=== PATIENT | male | born 1945 | race Caucasian/White ===

== ENCOUNTER 2017-01-03 15:26 | Observation (INO) ==
[2017-01-03] MEDS ORDERED: FUROSEMIDE 100 MG/10 ML VIAL IV STA (15:46)
[2017-01-03] MEDS ORDERED: ASPIRIN 325 MG TABLET PO STA (15:46)
[2017-01-03] MEDS ORDERED: NITROGLYCERIN 2% OINT 1 INCH/GM PACK TOP STA (15:46)
[2017-01-03] MEDS ORDERED: ONDANSETRON 4 MG/2 ML VIAL IV PRN ×2 (15:46→18:30)
--- NOTE | 2017-01-03 15:50 | EKG Report ---
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
--- NOTE | 2017-01-03 16:06 | Emergency Department Note ---
Letty Chanel Mantricia, am scribing for, and in the presence of, Diallo Baker MD 16:01. Olivia Chanel James D, MD, personally performed the services described in this documentation, ascribed by Montserrat Saenz in my presence, and it is both accurate and complete [id number] . Arrival - Arrival Chief Complaint: Shortness of Breath Stated Complaint: Shortness of Breath ED Nursing Triage Note: reports sob that started three days ago that is worse on exertion. reports has recently started on a low carb diet through wt mgmnt and it started after that reports also gets a pain in his left shoulder blade when he has the sob. Mode of Arrival: Wheelchair Limitations: No Limitations Source: Patient, Old Records Reviewed, RN Notes Reviewed Time Seen by Provider: 01/03/17 15:41 - History of Present Illness HPI Narrative: Pt is a 71 y/o white male arriving to ED via wheelchair with c/o SOB that onset 3 days ago. He reports that he noticed the SOB when his voice teacher, Dr. Mchugh , placed him on weight management. Once seeking help with weight management, pt was placed on a low carb diet, for which he has been on for 3 weeks now. Pt states that his SOB worsens with his other sxs, left shoulder blade. He denies becoming diaphoretic when he is short of breath. Pt reports decreased chronic lowered extremity movement due to his PMHx of spinal stenosis and cellulitis. Pt also has a PMHx of DM, CHF, Afib, and AAA. He is currently taking 0.125mg Digoxin, 81mg ASA, Diltiazam, Gabapentin, and 25mg Losartan, amongst many more. Pt's PCP is Dr. Auguste. No other complaints were reported to ED. Onset (ago): day(s) Consistency: constant Severity: moderate Allergies/Adverse Reactions: Allergies Allergy/AdvReac Type Severity Reaction Status Date / Time No Known Allergies Allergy Verified 07/03/16 11:23 Home Medications: Home Medications Medication Instructions Recorded Confirmed Type Allopurinol 100 mg PO BID 07/03/16 01/03/17 History Aspirin [Ecotrin] 81 mg PO QAM 07/03/16 01/03/17 History Carvedilol [Coreg] 3.125 mg PO BID 07/03/16 01/03/17 History Digoxin 0.125 mg PO QAM 07/03/16 01/03/17 History Diltiazem Cd Cap [Cardizem CD] 240 mg PO BID 07/03/16 01/03/17 History Furosemide Tab [Lasix Tab] 40 mg PO QAM 07/03/16 01/03/17 History Gabapentin Cap/Tab [Neurontin 600 mg PO TID 07/03/16 01/03/17 History Cap/Tab] Glimepiride [Amaryl] 4 mg PO DAILY W/BREAKFAST 07/03/16 01/03/17 History Losartan [Cozaar] 25 mg PO QAM 07/03/16 01/03/17 History Lovastatin 20 mg PO BEDTIME 07/03/16 01/03/17 History Magnesium 250 mg PO BID 07/03/16 01/03/17 History Tamsulosin [Flomax] 0.4 mg PO BID 07/03/16 01/03/17 History Potassium Chloride Cap/Tab [K Dur] 40 meq PO BID 01/03/17 01/03/17 History Review of System - Review of System 12 point system: reviewed and no additional remarkable complaints except as stated - Review of System Constitutional: Absent: chills, diaphoresis, fever Respiratory: Present: other (SOB). Absent: cough Cardiovascular: Absent: chest pain Gastrointestinal: Absent: abdominal pain, nausea, vomiting, diarrhea Musculoskeletal: Present: other (left shoulder blade pain). Absent: arm pain, back pain, leg pain, neck pain Medical,Surgical,& Family Hx - Medical History Cardio: History of: Cardiac Dysrhythmia (AFIB, DR MCHUGH 6 WEEKS AGO FOR AAA IN FUTURE), Hypertension (MEDICATION), Cardiovascular Problems (AAA followed by Dr. Goldstein) Neurology: History of: Peripheral Neuropathy (MEDICATION) No history of: Seizures Genitourinary: History of: Kidney Stones Gastrointestinal: Comment Only: GI Problems (FISTULA SURG OVER 40 YRS AGO) Musculoskeletal: History of: Back/Neck Problems (Spinal stenosis diagnosed today ), Herniated Disk, Musculoskeletal Problems (RIGHT LEG CYST REMOVED 10 YEARS AGO ) Other: No history of: Anesthesia Reactions - Surgical History Cardiac Surgeries: Sugical HX of: Cardiac Catheterization (No coronary artery disease, nonischemic cardiomyopathy) Abdominal Surgeries: Surgical HX of: Hernia Repair (15 YEARS AGO) - Social History Smoking Status: Never smoker Exam Vital Signs: Vital Signs Temperature 98.1 F 01/03/17 15:28 Pulse Rate 91 H 01/03/17 15:47 Respiratory Rate 22 01/03/17 15:47 Blood Pressure 136/73 01/03/17 15:28 O2 Sat by Pulse Oximetry 94 L 01/03/17 15:28 GENERAL: This is a well-nourished well-developed chronically ill-appearing white male in no apparent distress. VITAL SIGNS: Reviewed HEENT: Head is atraumatic and normocephalic. Pupils are equal round react to light. Extraocular movements are intact. Oropharynx is benign with moist mucous membranes. NECK: Neck is soft and supple without tenderness. There are no masses. There is no lymphadenopathy. LUNGS: Coarse breath sounds in the bases bilaterally. Chest rises symmetrically. There is no chest wall tenderness. CV: Heart is irregularly irregular without murmurs rubs or gallops. ABDOMEN: Abdomen is soft, nontender to palpation. There are no abdominal abnormal masses palpated. There is no organomegaly. Bowel sounds are present and active. SKIN: Skin is warm and dry. No rash. EXTREMITIES: Patient has full range of motion without tenderness. There is trace pedal edema. NEUROLOGIC: Awake alert and oriented 4. Cranial nerves II through XII are grossly intact. Motor is 4 over 5 in all extremities bilaterally. Course - Consultations Consultation #1: Discussed with Dr. José. Patient will be admitted to their service. Initial orders written for him. He will assume patient's care upon arrival to the [facility]. Time: 17:11 Results - Labs CBC & BMP: 01/03/17 15:59 01/03/17 15:59 Lab Results: I have reviewed the patients labs Labs: Laboratory Tests 01/03/17 15:59 Troponin I 0.446 H - EKG EKG results: interpreted by ERMD - Impressions EKG: Atrial fib with a rate of 92, nonspecific ST-T wave changes, right axis deviation - Diagnostic Findings Procedure: Chest x-ray: image reviewed by me (Increased pulmonary markings bilaterally.) Disposition Clinical Impression: Atrial fibrillation, Dyspnea, Congestive heart failure, Diabetes mellitus, Spinal stenosis, Elevated troponin Case discussed with: patient, patient's family
[2017-01-03 16:12] LABS: Basophils % 0.5 % (0.0-0.8); Eosinophils # 0.2 10*3/uL (0.0-0.87); Hematocrit 44.6 VOL% (42.0-52.0); Hemoglobin 14.5 GM/DL (14.0-18.0); Immature Granulocytes % 0.4 %; Immature Granulocytes Absolute 0.03 #; Mean Corpuscular HGB Conc 32.5 GM/DL (32-36); Mean Corpuscular Hemoglobin 29 PG (27-34); Mean Corpuscular Volume 89.4 FL (87-102); Mean Platelet Volume 10.7 FL (9.6-12.0); Monocytes # 0.5 10*3/uL (0.11-0.8); Monocytes % 6.4 % (1.7-12.7); Neutrophils % 77.7 % (38.7-73.9); Platelet Count 187 T/CUMM (130-400); Red Blood Count 4.99 MC/CUMM (3.8-5.5); Red Cell Distribution Width 14.7 % (9.3-17.3); White Blood Count 7.7 T/CUMM (4-12)
[2017-01-03] MEDS ORDERED: NITROGLYCERIN 2% OINT 1 INCH/GM PACK TOP ONE (16:12)
[2017-01-03] MEDS ORDERED: FUROSEMIDE 100 MG/10 ML VIAL ONE (16:13)
[2017-01-03] MEDS ORDERED: ASPIRIN 325 MG TABLET ONE (16:13)
--- NOTE | 2017-01-03 16:16 | XRay Report ---
Single view the chest. Indication: Shortness of breath. Comparison: March 02, 2013. The heart is enlarged. The pulmonary vasculature is prominent. The interstitial lung markings are prominent. There are bilateral pleural effusions. Impression: Congestive heart failure. PROCEDURE INTERPRETED AT [facility] DEPARTMENT OF RADIOLOGY Final Report Signed by: Dr. Maggie Neumann
[2017-01-03 16:20] LABS: INR 1.3; PT Patient Result 14.4 SECS; Partial Thromboplastin Time 38.7 SECS (0-40)
[2017-01-03 16:48] LABS: Albumin 2.8 G/DL (3.4-5.0); Bilirubin,Total 0.9 MG/DL (0.2-1.0); Magnesium 2.1 MG/DL (1.8-2.4); Osmolality,Calculated 284.5 MOS/KG (273-304); Potassium 4.1 MMOL/L (3.5-5.1); Total Protein 6.2 G/DL (6.4-8.3)
[2017-01-03 16:49] LABS: Troponin I Only 0.446 NG/ML (0.00-0.045)
[2017-01-03] MEDS ORDERED: ENOXAPARIN 120 MG/0.8 ML SYRINGE SUBCUT STA (17:09)
[2017-01-03] MEDS ORDERED: ENOXAPARIN 120 MG/0.8 ML SYRINGE SUBCUT ONE (17:23)
[2017-01-03] MEDS ORDERED: GLUCAGON 1 MG VIAL IM PRN (18:30)
[2017-01-03] MEDS ORDERED: DEXTROSE 50% 25 GM/50 ML SYRINGE IV PRN (18:30)
[2017-01-03] MEDS ORDERED: MAGNESIUM SULF RIDER 4 GM in PREMIX 1 EACH IV PRN (18:30)
[2017-01-03] MEDS ORDERED: MAGNESIUM SULF RIDER 2 GM in PREMIX 1 EACH IV PRN (18:30)
[2017-01-03] MEDS ORDERED: SODIUM CHLORIDE 0.9% 1,000 ML IV SCH (18:30)
[2017-01-03] MEDS ORDERED: ENOXAPARIN 40 MG/0.4 ML SYRINGE SUBCUT SCH (21:00)
[2017-01-03] MEDS: INSULIN LISPRO 100 UNIT/ML SUBCUT SCH (22:17)
[2017-01-03] MEDS: CARVEDILOL 3.125 MG TABLET PO SCH (22:18)
[2017-01-03] MEDS: DILTIAZEM CD 240 MG CAPSULE PO SCH (22:18)
[2017-01-03] MEDS: TAMSULOSIN 0.4 MG CAPSULE PO SCH (22:18)
[2017-01-03] MEDS: POTASSIUM CHLORIDE 20 MEQ TABLET PO SCH (22:19)
[2017-01-04] MEDS: MAGNESIUM OXIDE 400 MG TABLET PO SCH ×3 (06:07→21:56)
--- NOTE | 2017-01-04 07:21 | Cardiology History & Physical ---
Assessment and Plan - Time spent with patient Time spent with patient: Greater than 30 minutes (Exam, interview, chart review) (1) Atrial fibrillation, permanent Status: Chronic Assessment and plan: Continue anticoagulation and rate control Current Visit: No (2) Obesity Status: Chronic Current Visit: No Qualifiers: Body mass index: BMI 45.0-49.9 (3) Spinal stenosis Status: Chronic Current Visit: No Qualifiers: Spinal region: lumbar Qualified Code(s): M48.06 - Spinal stenosis, lumbar region (4) Nephrolithiasis Status: Chronic Current Visit: No (5) Gait abnormality Status: Chronic Current Visit: No (6) Obstructive sleep apnea Status: Chronic Current Visit: No (7) Atrial fibrillation Status: Chronic Current Visit: Yes (8) Dyspnea Status: Acute Assessment and plan: This appears to be acute on chronic. Current Visit: Yes Qualifiers: Dyspnea type: dyspnea on exertion Qualified Code(s): R06.09 - Other forms of dyspnea (9) Diabetes mellitus Status: Acute Current Visit: Yes Qualifiers: Diabetes mellitus type: type 2 (10) Elevated troponin Status: Chronic Assessment and plan: There is no dynamic movement in his troponin levels this is likely multifactorial will get an echo. I felt the patient had been cathed before but I cannot find that report he may need left heart cath. Current Visit: Yes (11) Tremor Status: Chronic Assessment and plan: This appears to be worse. Consider getting neurology to see Current Visit: Yes History of Present Illness Chief complaint: Shortness of breath History of present illness: Mr. Javier is a 71 year old male followed by me in the outpatient setting. He has a history of morbid exogenous obesity. He also has a history of cardiomyopathy that was felt to be tachycardia induced to control his heart rate is ejection fraction improved. The patient has many significant comorbidities including obstructive sleep apnea obesity dyslipidemia hypertension and severe degenerative lumbar disc disease with some spinal stenosis. The patient has had a significant downhill course over the last 6 months to 1 year. He was seen in the emergency room several months ago for complaint of weakness in his legs where his legs gave way he was evaluated by Dr. Cottrell and I saw him as well. He was found to have significant degenerative disease in his lumbar spine as well as some mild spinal stenosis. He was referred to neurosurgery from the findings on his CT scan. The neurosurgeons in [place] would not see him without a MRI. His insurance company would not approve an MRI until he had a minimum of 4 weeks of physical therapy. The patient was referred to morning weight loss went on a low-carb diet recently. He lost 14 pounds over about 3 weeks became extremely weak and short of breath. He saw his primary care physician last week who thought that the diet was probably too restrictive for him and liberalize his diet he continued to have more progressive dyspnea to the point if he felt he needed to come to the emergency room on Wednesday. The patient states that when he got up to walk to his vehicle to get to the emergency room his dyspnea had gotten better. He came here for further evaluation. He was found to have a mildly elevated troponin that appeared to be stagnant he also has a elevated BMP. Patient also some complaints of some scapular pain that has been present for several weeks and he discussed with his primary care physician last week. This pain occurs when he is sitting in a chair but resolved whenever he is lying in bed. I have reviewed his chart and reviewed the patient discussed with the patient and his Kinjal. The patient's physical therapy has been on hold now for a couple of weeks because he recently went to his grandson'[employer] football game and received a severe sunburn to his lower extremities resulting in a blister and open wound. He was getting water therapy and physical therapy but has now been on hold because of an open wound. He is admitted to the cardiology service for further evaluation. Home Medications Medication Instructions Recorded Confirmed Type Allopurinol 100 mg PO BID 07/03/16 01/03/17 History Aspirin [Ecotrin] 81 mg PO QAM 07/03/16 01/03/17 History Carvedilol [Coreg] 3.125 mg PO BID 07/03/16 01/03/17 History Digoxin 0.125 mg PO QAM 07/03/16 01/03/17 History Diltiazem Cd Cap [Cardizem CD] 240 mg PO BID 07/03/16 01/03/17 History Furosemide Tab [Lasix Tab] 40 mg PO QAM 07/03/16 01/03/17 History Gabapentin Cap/Tab [Neurontin 600 mg PO TID 07/03/16 01/03/17 History Cap/Tab] Glimepiride [Amaryl] 4 mg PO DAILY W/BREAKFAST 07/03/16 01/03/17 History Losartan [Cozaar] 25 mg PO QAM 07/03/16 01/03/17 History Lovastatin 20 mg PO BEDTIME 07/03/16 01/03/17 History Magnesium 250 mg PO BID 07/03/16 01/03/17 History Tamsulosin [Flomax] 0.4 mg PO BID 07/03/16 01/03/17 History Potassium Chloride Cap/Tab [K Dur] 40 meq PO BID 01/03/17 01/03/17 History Rivaroxaban [Xarelto] 20 mg PO DAILY 01/03/17 01/03/17 History Allergies Allergy/AdvReac Type Severity Reaction Status Date / Time No Known Allergies Allergy Verified 07/03/16 11:23 - Constitutional Constitutional: Absent: anorexia, chills, lethargy, malaise - EENT Eyes: Absent: blurry vision, diplopia Ears: Absent: decreased hearing, ear discharge Nose, mouth and throat: Absent: dysphagia, epistaxis, headache(s), hoarseness, lip swelling, nasal congestion, sore throat, throat swelling - Cardiovascular Cardiovascular: Present: chest pain at rest, dyspnea, dyspnea on exertion, edema. Absent: chest pain with activity, lightheadedness, orthopnea, palpitations, PND - Respiratory Respiratory: Present: dyspnea, dyspnea on exertion, snoring, pain on inspiration. Absent: cough, wheezing - Gastrointestinal Gastrointestinal: Present: other (Denies fecal incontinence). Absent: change in bowel habits, coffee ground emesis, constipation, cramping, dyspepsia, dysphagia, early satiety, fecal incontinence, heartburn, hematemesis, melena, nausea, odynophagia, vomiting, jaundice - Genitourinary Genitourinary: Present: difficulty urinating (Followed by Dr. Neville Lerma this is gotten better since recent increase in his Flomax. He denies urinary incontinence). Absent: urinary incontinence - Musculoskeletal Musculoskeletal: Present: arthralgias, back pain, muscle weakness, myalgias - Neurological Neurological: Present: abnormal gait, frequent falls, numbness, radicular pain, tremor(s). Absent: confusion, convulsions, disequilibrium, dizziness, focal weakness, headache(s), memory loss - Psychiatric Psychiatric: Present: depression. Absent: anxiety, confusion - Endocrine Endocrine: Absent: cold intolerance, heat intolerance - Hematologic/Lymphatic Hematologic/Lymphatic: Present: easy bleeding, easy bruising Medical,Surgical,& Family Hx - Medical History Cardio: History of: Cardiac Dysrhythmia (AFIB), CHF, Hypertension (MEDICATION), Cardiovascular Problems (cardiomyopathy) Neurology: History of: Peripheral Neuropathy (MEDICATION), Neurological Problems (Tremor) No history of: Seizures Endocrine: History of: Diabetes Mellitus (NIDDM), Dyslipidemia Rheumatology: No history of;: Fibromyalgia, Myasthenia Gravis Respiratory: History of: Obstructive Sleep Apnea (cpap) Genitourinary: History of: Kidney Stones Gastrointestinal: History of: Liver Problems (hx or ERCP), GI Problems (FISTULA SURG OVER 40 YRS AGO) Musculoskeletal: History of: Back/Neck Problems (Spinal stenosis diagnosed today ), Herniated Disk, Musculoskeletal Problems (RIGHT LEG CYST REMOVED 10 YEARS AGO ) Other: No history of: Anesthesia Reactions - Surgical History Cardiac Surgeries: Sugical HX of: Cardiac Catheterization Abdominal Surgeries: Surgical HX of: Hernia Repair (15 YEARS AGO) - Family History Family History: Reports;: Family Cancer (colon mother), Family Stroke (father), Additional Family History (mother alzheimers) - Social History Smoking Status: Former smoker Frequency of Alcohol Use: None Type of Drug Use: None Marital Status: Lives With:: Spouse Functional capacity: uses cane/walker Cardiology Physical Exam - Constitutional Vitals: Vital Signs Temp Pulse Resp BP Pulse Ox 97.3 F L 88 20 103/62 92 L 01/04/17 04:44 01/04/17 04:44 01/04/17 05:56 01/04/17 04:44 01/04/17 04:44 Intake and Output 01/03/17 01/03/17 01/04/17 15:59 23:59 07:59 Intake Total 240 / 240 Output Total 2150 / 2150 350 / 350 Balance -1910 / -1910 -350 / -350 Intake: Oral 240 / 240 Output: Urine 2150 / 2150 350 / 350 Other: Voiding Method Urinal Urinal # Voids 2 # Bowel Movements 0 0 Weight 156.943 kg 156.943 kg 159.665 kg Patient Weight 01/04/17 23:59 Weight 159.665 kg General appearance: morbidly obese - Eye Eye exam: Present: EOMI, conjunctival injection Pupils: Present: GERMAIN - Respiratory Respiratory exam: Present: clear to auscultation bilaterally - Cardiovascular Cardiovascular exam: Present: irregular rhythm - GI/Abdominal GI/Abdominal exam: Present: normal bowel sounds - Extremities Exam Extremities exam: Present: other (trace edema and escar formation on LE) - Neurological Exam Neurological exam: Present: alert, oriented X3 - Psychiatric Psychiatric exam: Present: flat affect - Skin Skin exam: Present: normal color, warm Result/EKG - Labs CBC & BMP: 01/03/17 15:59 01/03/17 15:59 Labs: Laboratory Results - last 24 hr 01/03/17 01/03/17 01/03/17 15:59 15:59 15:59 WBC 7.7 RBC 4.99 Hgb 14.5 Hct 44.6 MCV 89.4 MCH 29 MCHC 32.5 RDW 14.7 Plt Count 187 MPV 10.7 Neut % (Auto) 77.7 H Lymph % (Auto) 13.0 L Morton % (Auto) 6.4 Eos % (Auto) 2.0 Baso % (Auto) 0.5 Neut # (Auto) 6.0 Lymph # (Auto) 1.0 L Morton # (Auto) 0.5 Eos # (Auto) 0.2 Baso # (Auto) 0.0 Immature Gran % 0.4 Nucleated RBC % 0.0 Immature Gran # 0.03 Nucleated RBCs # 0.00 Immature Plt Fraction 0.0 INR 1.3 PT Patient/Control Mix 14.4 Circ Anticoag PTT 38.7 D Sodium 139 Potassium 4.1 Chloride 104 Carbon Dioxide 28 Anion Gap 11.1 BUN 26 H Creatinine 1.30 GFR Calculation 87 BUN/Creatinine Ratio 20.00 Glucose 161 H POC Glucose Calculated Osmolality 284.5 Calcium 9.0 Magnesium 2.1 Total Bilirubin 0.90 AST 15 ALT 48 Alkaline Phosphatase 65 Troponin I 0.446 H B-Natriuretic Peptide Total Protein 6.2 L Albumin 2.8 L Globulin 3.4 Albumin/Globulin Ratio 0.8 L Digoxin 01/03/17 01/03/17 01/03/17 15:59 15:59 18:43 WBC RBC Hgb Hct MCV MCH MCHC RDW Plt Count MPV Neut % (Auto) Lymph % (Auto) Morton % (Auto) Eos % (Auto) Baso % (Auto) Neut # (Auto) Lymph # (Auto) Morton # (Auto) Eos # (Auto) Baso # (Auto) Immature Gran % Nucleated RBC % Immature Gran # Nucleated RBCs # Immature Plt Fraction INR PT Patient/Control Mix Circ Anticoag PTT Sodium Potassium Chloride Carbon Dioxide Anion Gap BUN Creatinine GFR Calculation BUN/Creatinine Ratio Glucose POC Glucose Calculated Osmolality Calcium Magnesium Total Bilirubin AST ALT Alkaline Phosphatase Troponin I 0.601 H D B-Natriuretic Peptide 514 H Total Protein Albumin Globulin Albumin/Globulin Ratio Digoxin 0.80 L 01/03/17 01/03/17 01/04/17 21:24 22:00 00:54 WBC RBC Hgb Hct MCV MCH MCHC RDW Plt Count MPV Neut % (Auto) Lymph % (Auto) Morton % (Auto) Eos % (Auto) Baso % (Auto) Neut # (Auto) Lymph # (Auto) Morton # (Auto) Eos # (Auto) Baso # (Auto) Immature Gran % Nucleated RBC % Immature Gran # Nucleated RBCs # Immature Plt Fraction INR PT Patient/Control Mix Circ Anticoag PTT Sodium Potassium Chloride Carbon Dioxide Anion Gap BUN Creatinine GFR Calculation BUN/Creatinine Ratio Glucose POC Glucose 162 H Calculated Osmolality Calcium Magnesium Total Bilirubin AST ALT Alkaline Phosphatase Troponin I 0.539 H 0.587 H B-Natriuretic Peptide Total Protein Albumin Globulin Albumin/Globulin Ratio Digoxin - EKG EKG results: interpreted by me (atrial fibrillation)
[2017-01-04 08:03] LABS: Allen Test Positive; Pt O2 Delivery Device Room Air
[2017-01-04 09:04] LABS: ABG Base Excess 1.7 MMOL/L (-2.5-2.5); ABG HCO3 25.7 MMOL/L (20-26); ABG Oxygen Saturation 90.7 % (95-100); ABG PCO2 40.2 MM HG (35-48); ABG PH 7.422 (7.35-7.45); ABG PO2 60.8 MM HG (80-95); ABG TCO2 22.7 MMOL/L (23-27)
[2017-01-04] MEDS: ASPIRIN EC 81 MG TABLET PO SCH (09:21)
[2017-01-04] MEDS: GLIMEPIRIDE 4 MG TABLET PO SCH (09:21)
[2017-01-04] MEDS: POTASSIUM CHLORIDE 20 MEQ TABLET PO SCH ×2 (09:21→21:56)
[2017-01-04] MEDS: DIGOXIN 0.125 MG TABLET PO SCH (09:21)
[2017-01-04] MEDS: ALLOPURINOL 100 MG TABLET PO SCH ×2 (09:22→21:58)
[2017-01-04] MEDS: DILTIAZEM CD 240 MG CAPSULE PO SCH ×2 (09:22→21:54)
[2017-01-04] MEDS: GABAPENTIN 300 MG CAPSULE PO SCH ×3 (09:22→21:55)
[2017-01-04] MEDS: RIVAROXABAN 20 MG TABLET PO SCH (09:22)
[2017-01-04] MEDS: PANTOPRAZOLE 40 MG TABLET PO SCH (09:22)
[2017-01-04] MEDS: FUROSEMIDE 40 MG TABLET PO SCH (09:22)
[2017-01-04] MEDS: CARVEDILOL 3.125 MG TABLET PO SCH ×3 (09:22→17:32)
[2017-01-04] MEDS: LOSARTAN 25 MG TABLET PO SCH (09:22)
[2017-01-04] MEDS: INSULIN LISPRO 100 UNIT/ML SUBCUT SCH ×4 (09:23→21:59)
[2017-01-04] MEDS: TAMSULOSIN 0.4 MG CAPSULE PO SCH ×2 (09:23→21:58)
--- NOTE | 2017-01-04 09:37 | Ultrasound Report ---
US venous doppler LE BI Indication: CASTANO. Comparison: No relevant comparison.. Technique: Grayscale, spectral, and color Doppler interrogation of the bilateral lower extremity veins was performed. Augmentation and compression was performed. Findings: Grayscale, color Doppler, and pulsed Doppler evaluation of the veins of the bilateral lower extremity demonstrates no evidence of deep venous thrombosis. IMPRESSION: No evidence of deep venous thrombosis in either lower extremity. PROCEDURE INTERPRETED AT [facility] DEPARTMENT OF RADIOLOGY Final Report Signed by: Dr Otto Morris
--- NOTE | 2017-01-04 15:34 | ECHO Report ---
YayaJimmie Exam Date: 01/04/2017 14:30 Referring Physician: Technologist: monica Colvin ARDMS, RVT Age: 71 Ht (in): 73 Wt (lb): 352 Gender: M Exam Location: [facility] Echo Indications: Atrial fibrillation, CASTANO BP: 103 / 62 HR: 90 Rhythm: Atrial fibrillation Technical Quality: Very technically difficult study IMPRESSIONS Left ventricular ejection fraction is estimated at 40%. Diastolic parameters were incomplete. Tricuspid regurgitation velocities suggest a RVSP of 46 mmHg plus the right atrial pressure. Biatrial enlargement MEASUREMENTS (Male / Female) Normal Values 2D ECHO LV Diastolic Diameter PLAX 6.1 cm 4.2 - 5.9 / 3.9 - 5.3 cm LV Systolic Diameter PLAX 4.7 cm LV Fractional Shortening PLAX 23.9 % IVS Diastolic Thickness 1.5 cm 0.6 - 1.0 / 0.6 - 0.9 cm LVPW Diastolic Thickness 1.0 cm 0.6 - 1.0 / 0.6 - 0.9 cm RV Internal Dim ED PLAX 4.4 cm Aortic Root Diameter 3.0 cm LA Systolic Diameter LX 4.6 cm 3.0 - 4.0 / 2.7 - 3.8 cm DOPPLER TR Peak Velocity 338.0 cm/s TR Peak Gradient 45.7 mmHg FINDINGS Left Ventricle Normal left ventricular cavity size. Mild left ventricular hypertrophy. Left ventricular ejection fraction is estimated at 40%. There is very poor endocardial resolution and regional wall motion abnormality cannot be adequately assessed. The patient in atrial fibrillation making ejection fraction more difficult to assess. Diastolic parameters were incomplete Right Ventricle The right ventricle is normal in size and function. Right Atrium The right atrium is enlarged. Left Atrium The left atrium is enlarged. Mitral Valve Morphologically normal mitral valve. Moderate mitral annular calcification. No mitral valve stenosis. Mild mitral valve regurgitation. Aortic Valve Aortic valve sclerosis without stenosis or regurgitation. Tricuspid Valve Morphologically normal tricuspid valve. Mild tricuspid valve regurgitation. Tricuspid regurgitation velocities suggest a RVSP of 46 mmHg plus the right atrial pressure. Pulmonic Valve Pulmonic valve not well visualized. No pulmonary valve regurgitation. Pericardium Normal pericardium without effusion. Aorta Normal ascending aorta dimension. Nupur Yañez (Electronically Signed) Final Date: 04 January 2017 15:33
--- NOTE | 2017-01-04 16:31 | Neurology Consult Note ---
History of Present Illness History of present illness: Mr. Javier is a 71 year old right-handed white gentleman with past medical history significant for cardiomyopathy obstructive sleep apnea, diabetes, hypertension, dyslipidemia, lumbar DDD. The patient has had a significant downhill course over the last 6 months to 1 year. He has been having significant lower extremity weakness and difficulty walking for last several months. He was found to have significant DDD in the lumbar spine as well as some mild spinal stenosis. He was referred to neurosurgery but he has not been seen by one. reported that he has been having increasing tremors for last several months to a year. He reported that he shakes primarily at rest upon flexion as well. He has slowed down a good bit and performing ADLs. He can fall easily. He has been having difficulty in performing ADL including dressing and bathing. He can feed himself. He reported that his brother also has history of tremors and his father/grandfather had tremors as well. Home Medications Medication Instructions Recorded Confirmed Type Allopurinol 100 mg PO BID 07/03/16 01/03/17 History Aspirin [Ecotrin] 81 mg PO QAM 07/03/16 01/03/17 History Carvedilol [Coreg] 3.125 mg PO BID 07/03/16 01/03/17 History Digoxin 0.125 mg PO QAM 07/03/16 01/03/17 History Diltiazem Cd Cap [Cardizem CD] 240 mg PO BID 07/03/16 01/03/17 History Furosemide Tab [Lasix Tab] 40 mg PO QAM 07/03/16 01/03/17 History Gabapentin Cap/Tab [Neurontin 600 mg PO TID 07/03/16 01/03/17 History Cap/Tab] Glimepiride [Amaryl] 4 mg PO DAILY W/BREAKFAST 07/03/16 01/03/17 History Losartan [Cozaar] 25 mg PO QAM 07/03/16 01/03/17 History Lovastatin 20 mg PO BEDTIME 07/03/16 01/03/17 History Magnesium 250 mg PO BID 07/03/16 01/03/17 History Tamsulosin [Flomax] 0.4 mg PO BID 07/03/16 01/03/17 History Potassium Chloride Cap/Tab [K Dur] 40 meq PO BID 01/03/17 01/03/17 History Rivaroxaban [Xarelto] 20 mg PO DAILY 01/03/17 01/03/17 History Allergies Allergy/AdvReac Type Severity Reaction Status Date / Time No Known Allergies Allergy Verified 07/03/16 11:23 12 point system: reviewed and no additional remarkable complaints except as stated Medical,Surgical,& Family Hx - Medical History Cardio: History of: Cardiac Dysrhythmia (AFIB), CHF, Hypertension (MEDICATION), Cardiovascular Problems (cardiomyopathy) Neurology: History of: Peripheral Neuropathy (MEDICATION), Neurological Problems (Tremor) No history of: Seizures Endocrine: History of: Diabetes Mellitus (NIDDM), Dyslipidemia Rheumatology: No history of;: Fibromyalgia, Myasthenia Gravis Respiratory: History of: Obstructive Sleep Apnea (cpap) Genitourinary: History of: Kidney Stones Gastrointestinal: History of: Liver Problems (hx or ERCP), GI Problems (FISTULA SURG OVER 40 YRS AGO) Musculoskeletal: History of: Back/Neck Problems (Spinal stenosis diagnosed today ), Herniated Disk, Musculoskeletal Problems (RIGHT LEG CYST REMOVED 10 YEARS AGO ) Other: No history of: Anesthesia Reactions - Surgical History Cardiac Surgeries: Sugical HX of: Cardiac Catheterization Abdominal Surgeries: Surgical HX of: Hernia Repair (15 YEARS AGO) - Family History Family History: Reports;: Family Cancer (colon mother), Family Stroke (father), Additional Family History (mother alzheimers) - Social History Smoking Status: Former smoker Frequency of Alcohol Use: None Type of Drug Use: None Exam - Constitutional Vitals: Period Temp Pulse Resp BP Sys/Gan Pulse Ox Last 24 Hr 97.3 F-97.9 F 75-180 18-20 103-142/62-95 86-100 Exam: GENERAL: Patient is in no acute distress. NECK: Neck is supple. There is no JVD. No carotid bruits present. No thyroid masses. CVS: First and second heart sounds are normal. There is no S3 present. Regular rate and rhythm. RESPIRATORY: Lungs are clear to auscultation without any rales or rhonchi. ABDOMEN: Soft and non-tender. Bowel sounds are present. There is no hepatosplenomegaly. EXT: There is no palpable edema. Peripheral pulses are present. Skin: No rashes Central Nervous system: General: Alert, awake and Oriented x 3 Speech: Fluent Comprehension: Intact and normal Facial expressions: Normal Cranial Nerves: CN1/Olfactory: Normal CN II/ Optic: Normal, Visual Arce unreliable CN III, and : GERMAIN & EOMI CN V: Normal & intact CN VII: face is symmetric CNVIII: Normal CN XI/X/XI/XII: Intact and Normal Motor: Bilateral olhu-bzsvdnu-[id number] tremor. Bilateral mild cogwheel rigidity Strength in the right 4/5 Strength in the left 4/5 Sensory: Decreased for all the modalities of PP, LT and temp sense Reflexes: 1+ and symmetrical Cerebellar function: Mild enhjaz-pz-ypen dysmetria Toes: Equivocal Gait: Able to get up with moderate assist. He has reduced arm swing and stooped posture. Turning at 180 even 2 steps. Results - Labs CBC & BMP: 01/03/17 15:59 01/03/17 15:59 Assessment and Plan (1) Parkinsons disease Status: Acute Assessment and plan: History and exam suggestive of Parkinson's disease. I have discussed at length with the family and patient regarding disease process, treatment options and prognosis. At the present time he is at stage I/II. Given his multiple comorbidities, he will require further evaluation as an outpatient. However we will go ahead and start him on some medication to see how it helps. I would also highly recommend to do inpatient rehabilitation because of patient high risk of fall and marked generalized weakness. Start Sinemet 25/100 mg 3 times daily Consults TMR Current Visit: Yes (2) DDD (degenerative disc disease), lumbar Status: Acute Assessment and plan: I would not recommend any further intervention at this time and just watch it. Current Visit: Yes
--- NOTE | 2017-01-04 17:43 | Sleep Medicine Consult ---
Assessment and Plan (1) Obstructive sleep apnea Status: Chronic Assessment and plan: This patient is been doing very well on CPAP therapy. We will see if we can get a new full facemask for him to use with his CPAP and will schedule him for follow-up in the sleep clinic. Thank you for this consult and the opportunity to participate in his care. Current Visit: No History of Present Illness Chief complaint: Obstructive sleep apnea History of present illness: Mr. Javier is a 71 year old male who has a history of obstructive sleep apnea diagnosed several years ago. He follows up with me in the [facility] sleep clinic. He states that he missed his last appointment. He has been very compliant with CPAP over the years. His mask is not working well and is worn out and needs to be replaced. He uses a full facemask and states that it is leaking significantly. He was admitted with shortness of breath and atypical chest pain. Sleep medicine was consulted to assist with management of his sleep apnea. Home Medications Medication Instructions Recorded Confirmed Type Allopurinol 100 mg PO BID 07/03/16 01/03/17 History Aspirin [Ecotrin] 81 mg PO QAM 07/03/16 01/03/17 History Carvedilol [Coreg] 3.125 mg PO BID 07/03/16 01/03/17 History Digoxin 0.125 mg PO QAM 07/03/16 01/03/17 History Diltiazem Cd Cap [Cardizem CD] 240 mg PO BID 07/03/16 01/03/17 History Furosemide Tab [Lasix Tab] 40 mg PO QAM 07/03/16 01/03/17 History Gabapentin Cap/Tab [Neurontin 600 mg PO TID 07/03/16 01/03/17 History Cap/Tab] Glimepiride [Amaryl] 4 mg PO DAILY W/BREAKFAST 07/03/16 01/03/17 History Losartan [Cozaar] 25 mg PO QAM 07/03/16 01/03/17 History Lovastatin 20 mg PO BEDTIME 07/03/16 01/03/17 History Magnesium 250 mg PO BID 07/03/16 01/03/17 History Tamsulosin [Flomax] 0.4 mg PO BID 07/03/16 01/03/17 History Potassium Chloride Cap/Tab [K Dur] 40 meq PO BID 01/03/17 01/03/17 History Rivaroxaban [Xarelto] 20 mg PO DAILY 01/03/17 01/03/17 History Allergies Allergy/AdvReac Type Severity Reaction Status Date / Time No Known Allergies Allergy Verified 07/03/16 11:23 Review of systems: Otherwise unremarkable from a sleep medicine standpoint. Exam (Pulmonay) H&P - Constitutional Vitals: Period Temp Pulse Resp BP Sys/Gan Pulse Ox Last 24 Hr 97.3 F-97.9 F 75-180 18-20 103-142/62-95 86-94 Exam: He is alert and responsive in no acute distress. Pupils equal round reactive to light and accommodation. Extraocular movements intact. Oropharynx with a class III Mallampati exam. Neck is supple without adenopathy or thyromegaly. No supraclavicular adenopathy is noted. Chest with symmetrical breath sounds without focal wheeze, rhonchi, or rales. Cardiac exam reveals a regular rhythm without murmur or gallop. Abdomen soft nontender without palpable hepatosplenomegaly or mass. Extremities are without clubbing, cyanosis, or edema. Neurologically, he is grossly intact. He moves all extremities with good strength. Medical,Surgical,& Family Hx - Medical History Cardio: History of: Cardiac Dysrhythmia (AFIB), CHF, Hypertension (MEDICATION), Cardiovascular Problems (cardiomyopathy) Neurology: History of: Peripheral Neuropathy (MEDICATION), Neurological Problems (Tremor) No history of: Seizures Endocrine: History of: Diabetes Mellitus (NIDDM), Dyslipidemia Rheumatology: No history of;: Fibromyalgia, Myasthenia Gravis Respiratory: History of: Obstructive Sleep Apnea (cpap) Genitourinary: History of: Kidney Stones Gastrointestinal: History of: Liver Problems (hx or ERCP), GI Problems (FISTULA SURG OVER 40 YRS AGO) Musculoskeletal: History of: Back/Neck Problems (Spinal stenosis diagnosed today ), Herniated Disk, Musculoskeletal Problems (RIGHT LEG CYST REMOVED 10 YEARS AGO ) Other: No history of: Anesthesia Reactions - Surgical History Cardiac Surgeries: Sugical HX of: Cardiac Catheterization Abdominal Surgeries: Surgical HX of: Hernia Repair (15 YEARS AGO) - Family History Family History: Reports;: Family Cancer (colon mother), Family Stroke (father), Additional Family History (mother alzheimers) - Social History Smoking Status: Former smoker Frequency of Alcohol Use: None Type of Drug Use: None Results - Labs CBC & BMP: 09/17/17 15:59 01/03/17 15:59 Lab Results: I have reviewed the past 24 hour labs
[2017-01-04] MEDS ORDERED: LOVASTATIN 20 MG TABLET PO SCH (21:00)
[2017-01-04] MEDS: CARBIDOPA/LEVODOPA 25-100 MG TABLET PO SCH (21:58)
[2017-01-05] MEDS: INSULIN LISPRO 100 UNIT/ML SUBCUT SCH ×2 (08:29→12:45)
[2017-01-05] MEDS: DILTIAZEM CD 240 MG CAPSULE PO SCH (08:30)
[2017-01-05] MEDS: GABAPENTIN 300 MG CAPSULE PO SCH ×2 (08:30→14:52)
[2017-01-05] MEDS: MAGNESIUM OXIDE 400 MG TABLET PO SCH (08:30)
[2017-01-05] MEDS: TAMSULOSIN 0.4 MG CAPSULE PO SCH (08:31)
[2017-01-05] MEDS: CARBIDOPA/LEVODOPA 25-100 MG TABLET PO SCH ×2 (08:31→14:53)
[2017-01-05] MEDS: DIGOXIN 0.125 MG TABLET PO SCH (08:31)
[2017-01-05] MEDS: POTASSIUM CHLORIDE 20 MEQ TABLET PO SCH (08:31)
[2017-01-05] MEDS: GLIMEPIRIDE 4 MG TABLET PO SCH (08:31)
[2017-01-05] MEDS: FUROSEMIDE 40 MG TABLET PO SCH (08:31)
[2017-01-05] MEDS: LOSARTAN 25 MG TABLET PO SCH (08:31)
[2017-01-05] MEDS: ASPIRIN EC 81 MG TABLET PO SCH (08:31)
[2017-01-05] MEDS: CARVEDILOL 3.125 MG TABLET PO SCH (08:32)
[2017-01-05] MEDS: PANTOPRAZOLE 40 MG TABLET PO SCH (08:32)
[2017-01-05] MEDS: RIVAROXABAN 20 MG TABLET PO SCH (08:32)
[2017-01-05] MEDS: ALLOPURINOL 100 MG TABLET PO SCH (08:32)
[2017-01-05 11:19] VITALS: BP 142/64
--- NOTE | 2017-01-05 13:06 | Discharge Summary ---
Hospital Course - Hospital Course Hospital Course: Mr. Javier is a very pleasant 71-year-old gentleman has a history of nonischemic cardiomyopathy tachycardia induced. He has never had a left heart catheterization but with treatment of his atrial fibrillation his EF went from 10-15% up to 40%. He is not wanting to have cath in the past unless that "absolutely necessary." The patient presented with dyspnea. Please see the HPI but he has had a downhill course after a sunburn to his lower extremities while sitting in a ballgame watching his grandson play. He has severe discogenic lumbar disc disease and also had some spinal stenosis that was felt to potentially be related or the etiology of his legs "falling out from under him." He also has a tremor that has progressed he has some masked facies. Because of this decline in his functional status his gait is worsening upper extremity pill-rolling tremor in his mass bases on this admission I asked neurology to see and they do in fact feel that he has Parkinson disease. They recommended inpatient rehab the patient tells me that his insurance will not pay for it and he is ready to go home. He will be set up for outpatient or home PT will eventually ultimately resume PT for his lower extremities. The patient was started on Sinemet in addition to his previous home medicines. His dyspnea has been stable or improved since he has been here his ejection fraction and cardiomyopathy were stable at 40%. The patient appears to have maximally benefited from hospitalization he will be discharged home today. His gets off work this evening at 4:00 and she will come pick him up. - Time spent with patient Time with patient DS: Greater than 30 minutes (Examination chart review orders and arrangement of discharge) Diagnosis - Discharge Diagnosis (1) Atrial fibrillation, permanent Status: Chronic (2) Obesity Status: Chronic (3) Spinal stenosis Status: Chronic (4) Nephrolithiasis Status: Chronic (5) Gait abnormality Status: Chronic (6) Obstructive sleep apnea Status: Chronic (7) Atrial fibrillation Status: Chronic (8) Dyspnea Status: Acute (9) Diabetes mellitus Status: Acute (10) Elevated troponin Status: Chronic (11) Parkinsons disease Status: Acute (12) DDD (degenerative disc disease), lumbar Status: Chronic Specialty Discharge - Follow Up or Referrals Follow up with: Trent Barreto MD [Physician] - Nupur Yañez DO [Physician] - 1 Month (ECG) Discharge Plan - Discharge Data Disposition: Disch To Home/Self Care Condition at Discharge: Stable Discharge Diet: advance to your usual diet Activity: resume usual activities as tolerated, other (PT) Hygiene: no restrictions Weight Bearing at Discharge: full weight bearing Driving: no restrictions Contact your physician if you experience:: fever over 101, Difficulty voiding, Redness or swelling, Nausea/Vomiting, Shortness of breath, Bleeding, pain uncontrolled by pain medications - Discharge Medications New Carbidopa/Levodopa 25-100 [Sinemet 25-100] 1 tablet PO TID #90 tablet Continue Gabapentin Cap/Tab [Neurontin Cap/Tab] 600 mg PO TID Allopurinol 100 mg PO BID Furosemide Tab [Lasix Tab] 40 mg PO QAM Magnesium 250 mg PO BID Aspirin [Ecotrin] 81 mg PO QAM Digoxin 0.125 mg PO QAM Losartan [Cozaar] 25 mg PO QAM Carvedilol [Coreg] 3.125 mg PO BID Diltiazem Cd Cap [Cardizem CD] 240 mg PO BID Potassium Chloride Cap/Tab [K Dur] 40 meq PO BID Tamsulosin [Flomax] 0.4 mg PO BID Glimepiride [Amaryl] 4 mg PO DAILY W/BREAKFAST Lovastatin 20 mg PO BEDTIME Rivaroxaban [Xarelto] 20 mg PO DAILY - Follow Up or Referral - Forms/Instructions Exam - Constitutional Vitals: Period Temp Pulse Resp BP Sys/Gan Pulse Ox Last 24 Hr 96.9 F-97.9 F 69-97 16-20 102-142/59-73 90-97 General appearance: morbidly obese - Head Head exam: Present: normal inspection - Eye Eye exam: Present: EOMI Pupils: Present: GERMAIN - ENT ENT exam: Present: normal exam - Respiratory Respiratory exam: Present: clear to auscultation bilaterally - Cardiovascular Cardiovascular exam: Present: irregular rhythm (Rate is well controlled) - GI/Abdominal GI/Abdominal exam: Present: normal bowel sounds - Extremities Exam Extremities exam: Present: normal inspection - Neurological Exam Neurological exam: Present: alert, oriented X3, abnormal gait, other (Resting tremor and masked faces) - Psychiatric Psychiatric exam: Present: normal mood, flat affect - Skin Skin exam: Present: normal color, warm, other (Excoriations and eschar on his lower extremities) Discharge Results Procedures and tests throughout hospitalization: Pending Orders 09/17/17 16:18 Blood Culture Stat Labs on day of discharge: Labs from last 24 hours 01/05/17 01/05/17 01/04/17 11:02 07:20 20:44 POC Glucose 239 H 110 H 155 H 01/04/17 15:41 POC Glucose 117 H Preliminary micro results at discharge 01/03/17 16:18 Blood Culture - Preliminary Blood No growth at 1 day 01/03/17 16:18 Blood Culture - Preliminary Blood No growth at 1 day - Imaging and Cardiology Cardiology Procedure: image reviewed by me, report reviewed by me DS: Provider Date of admission: 01/03/17 17:11 Primary care physician: Yenni Auguste M.D. Attending physician on admission: Dada Pinzon MD Consults: 01/03/17 22:48 Consult to Wound Care [facility] [CONS] Routine Reason for Wound Care: Other Consult Comment: pt has requested bariatric bed 01/04/17 07:10 Consult to Physical Therapy [CONS] Routine Reason for Physical Therapy: Gait Training Weakness Consult to Wound Care [facility] [CONS] Routine Reason for Wound Care: Wound Care Management 01/04/17 07:31 Consult to Physician [CONS] Routine Comment: tremor and LE weakness/gait instability Consulting Provider: Trent Barreto 01/04/17 11:48 Consult to Sleep Center [CONS] Routine Reason for Sleep Center: Sleep Center Physician Consult Comment: needs new mask and hasnt seen dr in over a month 01/04/17 16:35 Consult to Case Mgmt/Social Srvs [CONS] Routine Reason for Case Mgmt/Social Srvs: Rehab Discharging clinician: Nupur Yañez DO Expected date of discharge: 01/05/17
--- NOTE | 2017-01-05 14:41 | Sleep Medicine Progress Note ---
Assessment and Plan (1) Obstructive sleep apnea Status: Chronic Current Visit: No Sleep Medicine Subjective Interval history: Patient did get his mask replaced last night and slept well. I just stop by to check on him and make sure that he did well. He slept very well last night with CPAP. Follow-up will be in the [facility] sleep clinic. Exam (Progress Note) - Constitutional Vitals: Period Temp Pulse Resp BP Sys/Gan Pulse Ox Last 24 Hr 96.9 F-97.9 F 69-97 16-20 102-142/59-73 90-97 Results - Labs CBC & BMP: 01/03/17 15:59 01/03/17 15:59 Specialty Discharge - Follow Up or Referrals Follow up with: Trent Barreto MD [Physician] - Nupur Yañez DO [Physician] - 01/27/17 8:30 am (ECG)
== END 2017-01-05 16:26 | disposition home or self-care (01) ==
LOC: N.EDINP 15:26 → N.ED 15:26 → N.TELES 18:22
PROVIDERS: ADMIT Internal Medicine Interventional Cardiology; ATTEND Internal Medicine Interventional Cardiology

== ENCOUNTER 2017-11-12 16:22 | Inpatient (IN) ==
[2017-11-12] MEDS ORDERED: LEVOFLOXACIN INJ 750 MG in PREMIX 1 EACH IV STA (16:38)
[2017-11-12] MEDS ORDERED: FUROSEMIDE 100 MG/10 ML VIAL IV STA (16:38)
[2017-11-12] MEDS ORDERED: methylPREDNISolone SOD SUC 125 MG/2 ML VIAL IV STA (16:38)
[2017-11-12] MEDS ORDERED: ALBUTEROL 2.5 MG/3 ML NEB RESP TX SCH (17:00)
[2017-11-12] MEDS ORDERED: NITROGLYCERIN 2% OINT 1 INCH/GM PACK TOP STA (17:09)
[2017-11-12 17:14] LABS: ABG Base Excess 2.1 MMOL/L (-2.5-2.5); ABG Oxygen Saturation 88.9 % (95-100); ABG PCO2 51.8 MM HG (35-48); ABG PH 7.355 (7.35-7.45); ABG PO2 59.9 MM HG (80-95); Pt O2 Delivery Device BIPAP
[2017-11-12] MEDS ORDERED: ALBUTEROL 2.5 MG/3 ML NEB RESP TX PRN (18:15)
[2017-11-12] MEDS ORDERED: ONDANSETRON 4 MG/2 ML VIAL IV PRN (18:15)
[2017-11-12] MEDS ORDERED: PROMETHAZINE 25 MG/1 ML VIAL IM PRN (18:15)
[2017-11-12] MEDS ORDERED: DEXTROSE 50% 25 GM/50 ML VIAL IV PRN (18:20)
[2017-11-12] MEDS ORDERED: GLUCAGON 1 MG VIAL IM PRN (18:20)
[2017-11-12 18:24] LABS: Basophils # 0.1 10*3/uL (0.0-0.2); Basophils % 0.3 % (0.0-0.8); Hematocrit 47.6 VOL% (42.0-52.0); Hemoglobin 14.8 GM/DL (14.0-18.0); Immature Granulocytes % 0.5 %; Immature Granulocytes Absolute 0.08 #; Lymphocytes # 0.9 10*3/uL (1.4-4.0); Lymphocytes % 5.3 % (21.2-54.2); Mean Corpuscular HGB Conc 31.1 GM/DL (32-36); Mean Corpuscular Hemoglobin 28 PG (27-34); Mean Platelet Volume 10.4 FL (9.6-12.0); Monocytes % 5.5 % (1.7-12.7); Neutrophils # 15.2 10*3/uL (1.4-7.4); Neutrophils % 88.4 % (38.7-73.9); Platelet Count 172 T/CUMM (130-400); Red Blood Count 5.29 MC/CUMM (3.8-5.5); Red Cell Distribution Width 16.9 % (9.3-17.3); White Blood Count 17.1 T/CUMM (4-12)
[2017-11-12 18:46] LABS: Albumin 3.3 G/DL (3.4-5.0); Bilirubin,Total 1.2 MG/DL (0.2-1.0); CKMB % 16.4 %; Calcium 8.6 MG/DL (8.5-10.1); Osmolality,Calculated 289.3 MOS/KG (273-304); Potassium 4.2 MMOL/L (3.5-5.1); Total Protein 7.3 G/DL (6.4-8.3)
[2017-11-12 18:48] LABS: INR 3.7; PT Patient Result 37.1 SECS; Partial Thromboplastin Time 64.6 SECS (0-40)
[2017-11-12] MEDS ORDERED: hydrALAZINE 20 MG/1 ML VIAL IV PRN (18:52)
[2017-11-12 18:59] LABS: Lactic Acid 2.4 MMOL/L (0.4-2.0)
[2017-11-12 19:01] LABS: Apearance,Urine Slightly Hazy (Clear); Bacteria,Urine Occasional /HPF (Few); Bilirubin,Urine Negative (Negative); Blood, Urine Large mg/dL (Negative); Glucose,Urine (UA) Negative (Negative); Ketones,Urine Negative (Negative); Mucus,Urine Occasional /LPF (Occasional); Nitrite,Urine Negative (Negative); Protein,Urine 30 MG/DL; RBC,Urine 285 /HPF (0-4); Squamous Epithelial Cell,Urine Occasional /HPF (0-10); Urine Color Yellow (Yellow); Urine Specific Gravity 1.006 (1.001-1.035); Urine Urobilinogen < 2.0 EU/DL (0.2-1.0); WBC,Urine 84 /HPF (0-6)
[2017-11-12 19:02] LABS: Troponin I Only 6.28 NG/ML (0.00-0.045)
[2017-11-12] MEDS ORDERED: ENOXAPARIN 100 MG/ML SYRINGE SUBCUT STA (19:15)
[2017-11-12] MEDS ORDERED: MORPHINE 4 MG/1 ML VIAL IV PRN (19:20)
[2017-11-12] MEDS ORDERED: ASPIRIN CHEW 81 MG TABLET PO STA (19:20)
[2017-11-12] MEDS ORDERED: MAGNESIUM SULF RIDER 4 GM in PREMIX 1 EACH IV PRN (19:25)
[2017-11-12] MEDS ORDERED: MAGNESIUM SULF RIDER 2 GM in PREMIX 1 EACH IV PRN (19:25)
[2017-11-12] MEDS ORDERED: POTASSIUM CHLORIDE RIDER 10 MEQ in PREMIX 1 EACH IV PRN (19:25)
[2017-11-12] MEDS ORDERED: ASPIRIN CHEW 81 MG TABLET PO ONE (19:25)
[2017-11-12] MEDS ORDERED: ENOXAPARIN 100 MG/ML SYRINGE SUBCUT ONE (20:42)
[2017-11-12] MEDS: FUROSEMIDE 40 MG/4 ML VIAL IV SCH (20:56)
[2017-11-12] MEDS: GABAPENTIN 300 MG CAPSULE PO SCH (20:57)
[2017-11-12] MEDS: MAGNESIUM OXIDE 400 MG TABLET PO SCH (20:57)
[2017-11-12] MEDS: CARBIDOPA/LEVODOPA 25-100 MG TABLET PO SCH (20:57)
[2017-11-12] MEDS: cefTRIAXone 1,000 MG in SYRINGE 1 EACH IV SCH (20:57)
[2017-11-12] MEDS: LOVASTATIN 20 MG TABLET PO SCH (20:57)
[2017-11-12] MEDS: PANTOPRAZOLE 40 MG VIAL IV SCH (20:57)
[2017-11-12] MEDS: CARVEDILOL 3.125 MG TABLET PO SCH (20:58)
[2017-11-12] MEDS: ALLOPURINOL 100 MG TABLET PO SCH (20:58)
[2017-11-12] MEDS: AZITHROMYCIN INJ 500 MG in SODIUM CHLORIDE 0.9% 250 ML IV SCH (21:46)
[2017-11-12 22:11] LABS: Calcium 8.3 MG/DL (8.5-10.1); Osmolality,Calculated 289.4 MOS/KG (273-304); Potassium 3.9 MMOL/L (3.5-5.1)
[2017-11-12 23:59] LABS: Troponin I Only 8.22 NG/ML (0.00-0.045)
[2017-11-13] MEDS: INSULIN REGULAR 100 UNIT/ML SUBCUT SCH ×5 (00:28→23:28)
[2017-11-13 00:34] LABS: CKMB % 16.5 %
[2017-11-13] MEDS: ALBUTEROL/IPRATROPIUM 3 ML NEB RESP TX SCH ×4 (00:57→19:21)
[2017-11-13 03:37] LABS: Basophils % 0.2 % (0.0-0.8); Hematocrit 42.7 VOL% (42.0-52.0); Hemoglobin 13.7 GM/DL (14.0-18.0); Immature Granulocytes % 0.4 %; Immature Granulocytes Absolute 0.05 #; Lymphocytes # 0.5 10*3/uL (1.4-4.0); Lymphocytes % 4.3 % (21.2-54.2); Mean Corpuscular HGB Conc 32.1 GM/DL (32-36); Mean Corpuscular Hemoglobin 29 PG (27-34); Mean Corpuscular Volume 89.1 FL (87-102); Monocytes # 0.1 10*3/uL (0.11-0.8); Neutrophils # 10.7 10*3/uL (1.4-7.4); Neutrophils % 94.1 % (38.7-73.9); Platelet Count 154 T/CUMM (130-400); Red Blood Count 4.79 MC/CUMM (3.8-5.5); Red Cell Distribution Width 16.6 % (9.3-17.3); White Blood Count 11.4 T/CUMM (4-12)
[2017-11-13 03:41] LABS: ABG Base Excess 4.7 MMOL/L (-2.5-2.5); ABG HCO3 28.5 MMOL/L (20-26); ABG Oxygen Saturation 93.7 % (95-100); ABG PCO2 45.3 MM HG (35-48); ABG PH 7.427 (7.35-7.45); ABG TCO2 25.8 MMOL/L (23-27)
[2017-11-13 04:11] LABS: Thyroid Stimulating Hormone 0.592 uIU/ml (0.358-3.74)
[2017-11-13 04:25] LABS: Calcium 8.8 MG/DL (8.5-10.1); Osmolality,Calculated 299.8 MOS/KG (273-304)
[2017-11-13 04:27] LABS: Albumin 2.6 G/DL (3.4-5.0); Bilirubin,Total 0.8 MG/DL (0.2-1.0); Calcium 8.8 MG/DL (8.5-10.1); Potassium 3.9 MMOL/L (3.5-5.1); Risk Ratio 2.36; Total Protein 6.6 G/DL (6.4-8.3)
[2017-11-13 04:31] LABS: CKMB % 14.7 %
[2017-11-13 04:35] LABS: Troponin I Only 8.13 NG/ML (0.00-0.045)
[2017-11-13 04:44] LABS: Band Neutrophils 16 % (0-10); Segmented Neutrophils 84 % (50-85); Total Cells Counted 100
[2017-11-13] MEDS: CARVEDILOL 3.125 MG TABLET PO SCH (08:45)
[2017-11-13] MEDS: LOSARTAN 25 MG TABLET PO SCH (08:45)
[2017-11-13] MEDS: MAGNESIUM OXIDE 400 MG TABLET PO SCH ×2 (08:45→20:35)
[2017-11-13] MEDS: TAMSULOSIN 0.4 MG CAPSULE PO SCH (08:45)
[2017-11-13] MEDS: GLIMEPIRIDE 4 MG TABLET PO SCH (08:46)
[2017-11-13] MEDS: DILTIAZEM CD 240 MG CAPSULE PO SCH (08:46)
[2017-11-13] MEDS: GABAPENTIN 300 MG CAPSULE PO SCH ×3 (08:46→20:34)
[2017-11-13] MEDS: cefTRIAXone 1,000 MG in SYRINGE 1 EACH IV SCH ×2 (08:47→20:34)
[2017-11-13] MEDS: FUROSEMIDE 40 MG/4 ML VIAL IV SCH ×2 (08:47→20:33)
[2017-11-13] MEDS: CARBIDOPA/LEVODOPA 25-100 MG TABLET PO SCH ×3 (08:47→20:35)
[2017-11-13] MEDS: ASPIRIN EC 81 MG TABLET PO SCH (08:47)
[2017-11-13] MEDS: ALLOPURINOL 100 MG TABLET PO SCH ×2 (08:47→20:35)
[2017-11-13] MEDS: RIVAROXABAN 20 MG TABLET PO SCH (08:47)
[2017-11-13 11:25] LABS: Calcium 8.6 MG/DL (8.5-10.1); Osmolality,Calculated 297.1 MOS/KG (273-304); Potassium 4.4 MMOL/L (3.5-5.1)
[2017-11-13] MEDS: CARVEDILOL 6.25 MG TABLET PO SCH ×2 (17:10→20:34)
[2017-11-13] MEDS: AZITHROMYCIN INJ 500 MG in SODIUM CHLORIDE 0.9% 250 ML IV SCH (20:33)
[2017-11-13] MEDS: PANTOPRAZOLE 40 MG VIAL IV SCH (20:33)
[2017-11-13] MEDS: LOVASTATIN 20 MG TABLET PO SCH (20:35)
[2017-11-14] MEDS: ALBUTEROL/IPRATROPIUM 3 ML NEB RESP TX SCH ×4 (01:00→19:37)
[2017-11-14 03:52] LABS: Basophils % 0.1 % (0.0-0.8); Hemoglobin 13.2 GM/DL (14.0-18.0); Immature Granulocytes % 0.7 %; Lymphocytes # 0.8 10*3/uL (1.4-4.0); Lymphocytes % 5.6 % (21.2-54.2); Mean Corpuscular HGB Conc 32.2 GM/DL (32-36); Mean Corpuscular Hemoglobin 28 PG (27-34); Mean Corpuscular Volume 87.4 FL (87-102); Mean Platelet Volume 11.1 FL (9.6-12.0); Monocytes # 0.8 10*3/uL (0.11-0.8); Monocytes % 5.7 % (1.7-12.7); Neutrophils # 12.5 10*3/uL (1.4-7.4); Neutrophils % 87.9 % (38.7-73.9); Platelet Count 175 T/CUMM (130-400); Red Blood Count 4.69 MC/CUMM (3.8-5.5); Red Cell Distribution Width 16.3 % (9.3-17.3); White Blood Count 14.2 T/CUMM (4-12)
[2017-11-14 04:21] LABS: Alanine Aminotransferase < 9 U/L (16-61); Albumin 2.5 G/DL (3.4-5.0); Alkaline Phosphatase 64 U/L (45-117); Aspartate Amino Transferase 27 U/L (0-37); Blood Urea Nitrogen 45 MG/DL (7-18); Glucose 206 MG/DL (74-106); Osmolality,Calculated 296.4 MOS/KG (273-304); Potassium 3.8 MMOL/L (3.5-5.1); Sodium 140 MMOL/L (136-145); Total Protein 6.5 G/DL (6.4-8.3)
[2017-11-14] MEDS: INSULIN REGULAR 100 UNIT/ML SUBCUT SCH ×3 (05:33→17:10)
[2017-11-14] MEDS: POTASSIUM CHLORIDE 20 MEQ TABLET PO PRN (07:35)
[2017-11-14] MEDS: FUROSEMIDE 40 MG/4 ML VIAL IV SCH ×2 (08:12→22:14)
[2017-11-14] MEDS: ALLOPURINOL 100 MG TABLET PO SCH ×2 (08:57→22:06)
[2017-11-14] MEDS: GABAPENTIN 300 MG CAPSULE PO SCH ×3 (08:57→22:06)
[2017-11-14] MEDS: DILTIAZEM CD 240 MG CAPSULE PO SCH (08:58)
[2017-11-14] MEDS: ASPIRIN EC 81 MG TABLET PO SCH (08:58)
[2017-11-14] MEDS: CARBIDOPA/LEVODOPA 25-100 MG TABLET PO SCH ×3 (08:59→22:06)
[2017-11-14] MEDS: LOSARTAN 25 MG TABLET PO SCH (08:59)
[2017-11-14] MEDS: MAGNESIUM OXIDE 400 MG TABLET PO SCH ×2 (08:59→22:05)
[2017-11-14] MEDS: GLIMEPIRIDE 4 MG TABLET PO SCH (08:59)
[2017-11-14] MEDS: TAMSULOSIN 0.4 MG CAPSULE PO SCH (08:59)
[2017-11-14] MEDS: RIVAROXABAN 20 MG TABLET PO SCH (08:59)
[2017-11-14] MEDS: cefTRIAXone 1,000 MG in SYRINGE 1 EACH IV SCH ×2 (09:00→22:15)
[2017-11-14] MEDS: CARVEDILOL 6.25 MG TABLET PO SCH (09:00)
[2017-11-14] MEDS: CARVEDILOL 12.5 MG TABLET PO SCH ×2 (14:07→22:06)
[2017-11-14] MEDS: CLOTRIMAZOLE 1% CREAM 15 GM TUBE TOP SCH ×2 (16:08→22:10)
[2017-11-14] MEDS ORDERED: diphenhydrAMINE CAP 25 MG CAPSULE PO PRN (20:47)
[2017-11-14] MEDS: LOVASTATIN 20 MG TABLET PO SCH (22:06)
[2017-11-14] MEDS: ACETAMINOPHEN 500 MG TABLET PO PRN (22:09)
[2017-11-14] MEDS: diphenhydrAMINE CAP 25 MG CAPSULE PO PRN (22:10)
[2017-11-14] MEDS: PANTOPRAZOLE 40 MG VIAL IV SCH (22:10)
[2017-11-14] MEDS: AZITHROMYCIN INJ 500 MG in SODIUM CHLORIDE 0.9% 250 ML IV SCH (22:20)
[2017-11-15] MEDS: INSULIN REGULAR 100 UNIT/ML SUBCUT SCH ×5 (00:20→23:30)
[2017-11-15] MEDS: ALBUTEROL/IPRATROPIUM 3 ML NEB RESP TX SCH ×4 (01:01→19:49)
[2017-11-15] MEDS: CARVEDILOL 12.5 MG TABLET PO SCH ×3 (03:55→14:11)
[2017-11-15 04:37] LABS: Basophils % 0.2 % (0.0-0.8); Eosinophils # 0.1 10*3/uL (0.0-0.87); Eosinophils % 1.2 % (0.00-10.9); Hematocrit 41.2 VOL% (42.0-52.0); Hemoglobin 13.1 GM/DL (14.0-18.0); Immature Granulocytes % 0.3 %; Immature Granulocytes Absolute 0.03 #; Lymphocytes # 1.2 10*3/uL (1.4-4.0); Lymphocytes % 13.7 % (21.2-54.2); Mean Corpuscular HGB Conc 31.8 GM/DL (32-36); Mean Corpuscular Hemoglobin 28 PG (27-34); Mean Platelet Volume 10.6 FL (9.6-12.0); Monocytes # 0.6 10*3/uL (0.11-0.8); Monocytes % 7.1 % (1.7-12.7); Neutrophils # 6.9 10*3/uL (1.4-7.4); Neutrophils % 77.5 % (38.7-73.9); Platelet Count 157 T/CUMM (130-400); Red Blood Count 4.63 MC/CUMM (3.8-5.5); Red Cell Distribution Width 16.3 % (9.3-17.3); White Blood Count 8.9 T/CUMM (4-12)
[2017-11-15 05:15] LABS: Albumin 2.5 G/DL (3.4-5.0); Bilirubin,Total 0.7 MG/DL (0.2-1.0); Calcium 8.9 MG/DL (8.5-10.1); Osmolality,Calculated 300.8 MOS/KG (273-304); Potassium 3.6 MMOL/L (3.5-5.1); Total Protein 6.3 G/DL (6.4-8.3)
[2017-11-15] MEDS: CHOLECALCIFEROL 1,000 UNIT TABLET PO SCH (08:19)
[2017-11-15] MEDS: DILTIAZEM CD 240 MG CAPSULE PO SCH (08:19)
[2017-11-15] MEDS: GLIMEPIRIDE 4 MG TABLET PO SCH (08:19)
[2017-11-15] MEDS: POTASSIUM CHLORIDE 20 MEQ TABLET PO PRN ×2 (08:19→10:59)
[2017-11-15] MEDS: TAMSULOSIN 0.4 MG CAPSULE PO SCH (08:20)
[2017-11-15] MEDS: LOSARTAN 25 MG TABLET PO SCH (08:20)
[2017-11-15] MEDS: CARBIDOPA/LEVODOPA 25-100 MG TABLET PO SCH ×3 (08:20→20:52)
[2017-11-15] MEDS: GABAPENTIN 300 MG CAPSULE PO SCH ×3 (08:20→20:52)
[2017-11-15] MEDS: ASPIRIN EC 81 MG TABLET PO SCH (08:20)
[2017-11-15] MEDS: MAGNESIUM OXIDE 400 MG TABLET PO SCH ×2 (08:20→20:52)
[2017-11-15] MEDS: RIVAROXABAN 20 MG TABLET PO SCH (08:20)
[2017-11-15] MEDS: ALLOPURINOL 100 MG TABLET PO SCH ×2 (08:21→20:52)
[2017-11-15] MEDS: FUROSEMIDE 40 MG/4 ML VIAL IV SCH ×2 (08:21→20:53)
[2017-11-15] MEDS: cefTRIAXone 1,000 MG in SYRINGE 1 EACH IV SCH ×2 (08:27→21:00)
[2017-11-15] MEDS: CLOTRIMAZOLE 1% CREAM 15 GM TUBE TOP SCH ×2 (08:30→20:51)
[2017-11-15] MEDS ORDERED: diphenhydrAMINE CAP 25 MG CAPSULE PO ONE ×2 (10:28→10:55)
[2017-11-15] MEDS ORDERED: DIAZEPAM 5 MG TABLET PO ONE (10:28)
[2017-11-15] MEDS ORDERED: SODIUM CHLORIDE 0.9% 1,000 ML IV SCH (10:30)
[2017-11-15] MEDS: ACETAMINOPHEN 500 MG TABLET PO PRN ×2 (10:58→20:52)
[2017-11-15] MEDS: diphenhydrAMINE CAP 25 MG CAPSULE PO PRN ×2 (10:58→20:52)
[2017-11-15] MEDS ORDERED: fentaNYL 100 MCG/2 ML VIAL ONE (15:52)
[2017-11-15] MEDS ORDERED: MIDAZOLAM 2 MG/2 ML VIAL ONE (15:52)
[2017-11-15] MEDS ORDERED: LIDOCAINE 1% 20 ML VIAL ONE (15:52)
[2017-11-15] MEDS ORDERED: DEXTROSE 50% 25 GM/50 ML VIAL IV PRN (18:20)
[2017-11-15] MEDS ORDERED: GLUCAGON 1 MG VIAL IM PRN (18:20)
[2017-11-15] MEDS: CARVEDILOL 25 MG TABLET PO SCH ×2 (20:51→23:30)
[2017-11-15] MEDS: LOVASTATIN 20 MG TABLET PO SCH (20:52)
[2017-11-15] MEDS: PANTOPRAZOLE 40 MG VIAL IV SCH (20:57)
[2017-11-15] MEDS: AZITHROMYCIN INJ 500 MG in SODIUM CHLORIDE 0.9% 250 ML IV SCH (21:04)
[2017-11-16] MEDS: ALBUTEROL/IPRATROPIUM 3 ML NEB RESP TX SCH ×5 (00:29→23:22)
[2017-11-16 05:11] LABS: Basophils % 0.4 % (0.0-0.8); Eosinophils # 0.2 10*3/uL (0.0-0.87); Eosinophils % 3.2 % (0.00-10.9); Hematocrit 40.6 VOL% (42.0-52.0); Hemoglobin 13.1 GM/DL (14.0-18.0); Immature Granulocytes % 0.3 %; Immature Granulocytes Absolute 0.02 #; Lymphocytes # 1.1 10*3/uL (1.4-4.0); Lymphocytes % 14.7 % (21.2-54.2); Mean Corpuscular HGB Conc 32.3 GM/DL (32-36); Mean Corpuscular Hemoglobin 29 PG (27-34); Mean Corpuscular Volume 88.8 FL (87-102); Mean Platelet Volume 10.5 FL (9.6-12.0); Monocytes # 0.6 10*3/uL (0.11-0.8); Monocytes % 8.1 % (1.7-12.7); Neutrophils # 5.4 10*3/uL (1.4-7.4); Neutrophils % 73.3 % (38.7-73.9); Platelet Count 159 T/CUMM (130-400); Red Blood Count 4.57 MC/CUMM (3.8-5.5); Red Cell Distribution Width 16.2 % (9.3-17.3); White Blood Count 7.4 T/CUMM (4-12)
[2017-11-16 05:23] LABS: Calcium 8.2 MG/DL (8.5-10.1); Osmolality,Calculated 298.8 MOS/KG (273-304); Potassium 3.7 MMOL/L (3.5-5.1)
[2017-11-16] MEDS: INSULIN REGULAR 100 UNIT/ML SUBCUT SCH ×4 (05:29→23:53)
[2017-11-16] MEDS: CARVEDILOL 25 MG TABLET PO SCH ×4 (06:14→23:53)
[2017-11-16] MEDS: ASPIRIN EC 81 MG TABLET PO SCH (08:21)
[2017-11-16] MEDS: LOSARTAN 25 MG TABLET PO SCH (08:21)
[2017-11-16] MEDS: CHOLECALCIFEROL 1,000 UNIT TABLET PO SCH (08:21)
[2017-11-16] MEDS: GLIMEPIRIDE 4 MG TABLET PO SCH (08:21)
[2017-11-16] MEDS: GABAPENTIN 300 MG CAPSULE PO SCH ×3 (08:22→21:03)
[2017-11-16] MEDS: DILTIAZEM CD 240 MG CAPSULE PO SCH (08:22)
[2017-11-16] MEDS: POTASSIUM CHLORIDE 20 MEQ TABLET PO PRN (08:22)
[2017-11-16] MEDS: ALLOPURINOL 100 MG TABLET PO SCH ×2 (08:22→21:03)
[2017-11-16] MEDS: MAGNESIUM OXIDE 400 MG TABLET PO SCH ×2 (08:23→21:03)
[2017-11-16] MEDS: TAMSULOSIN 0.4 MG CAPSULE PO SCH (08:23)
[2017-11-16] MEDS: CLOTRIMAZOLE 1% CREAM 15 GM TUBE TOP SCH ×2 (08:23→21:04)
[2017-11-16] MEDS: CARBIDOPA/LEVODOPA 25-100 MG TABLET PO SCH ×3 (08:23→21:03)
[2017-11-16] MEDS: FUROSEMIDE 40 MG/4 ML VIAL IV SCH ×2 (08:23→21:04)
[2017-11-16] MEDS: cefTRIAXone 1,000 MG in SYRINGE 1 EACH IV SCH ×2 (08:29→21:04)
[2017-11-16] MEDS: AZITHROMYCIN INJ 500 MG in SODIUM CHLORIDE 0.9% 250 ML IV SCH (21:00)
[2017-11-16] MEDS: LOVASTATIN 20 MG TABLET PO SCH (21:03)
[2017-11-16] MEDS: PANTOPRAZOLE 40 MG VIAL IV SCH (21:04)
[2017-11-16] MEDS: ACETAMINOPHEN 500 MG TABLET PO PRN (21:30)
[2017-11-16] MEDS: diphenhydrAMINE CAP 25 MG CAPSULE PO PRN (21:30)
[2017-11-17 03:34] LABS: Basophils % 0.4 % (0.0-0.8); Eosinophils # 0.3 10*3/uL (0.0-0.87); Eosinophils % 3.8 % (0.00-10.9); Immature Granulocytes % 0.4 %; Immature Granulocytes Absolute 0.03 #; Lymphocytes # 1.3 10*3/uL (1.4-4.0); Lymphocytes % 16.9 % (21.2-54.2); Mean Corpuscular HGB Conc 31.7 GM/DL (32-36); Mean Corpuscular Hemoglobin 28 PG (27-34); Mean Corpuscular Volume 88.4 FL (87-102); Mean Platelet Volume 10.5 FL (9.6-12.0); Monocytes # 0.6 10*3/uL (0.11-0.8); Monocytes % 7.8 % (1.7-12.7); Neutrophils # 5.4 10*3/uL (1.4-7.4); Neutrophils % 70.7 % (38.7-73.9); Platelet Count 151 T/CUMM (130-400); Red Blood Count 4.64 MC/CUMM (3.8-5.5); White Blood Count 7.6 T/CUMM (4-12)
[2017-11-17 04:03] LABS: Calcium 8.8 MG/DL (8.5-10.1); Osmolality,Calculated 298.8 MOS/KG (273-304); Potassium 3.5 MMOL/L (3.5-5.1); Potassium 3.8 MMOL/L (3.5-5.1)
[2017-11-17] MEDS: INSULIN REGULAR 100 UNIT/ML SUBCUT SCH (05:52)
[2017-11-17] MEDS: CARVEDILOL 25 MG TABLET PO SCH (05:53)
[2017-11-17] MEDS: ALBUTEROL/IPRATROPIUM 3 ML NEB RESP TX SCH ×2 (07:35→12:00)
[2017-11-17] MEDS ORDERED: RIVAROXABAN 20 MG TABLET PO SCH (08:00)
[2017-11-17] MEDS ORDERED: CARVEDILOL 25 MG TABLET PO SCH (09:00)
[2017-11-17] MEDS ORDERED: ASPIRIN CHEW 81 MG TABLET PO SCH (09:00)
[2017-11-17] MEDS: GABAPENTIN 300 MG CAPSULE PO SCH (09:24)
[2017-11-17] MEDS: CARBIDOPA/LEVODOPA 25-100 MG TABLET PO SCH (09:25)
[2017-11-17] MEDS: LOSARTAN 25 MG TABLET PO SCH (09:25)
[2017-11-17] MEDS: POTASSIUM CHLORIDE 20 MEQ TABLET PO PRN (09:25)
[2017-11-17] MEDS: MAGNESIUM OXIDE 400 MG TABLET PO SCH (09:25)
[2017-11-17] MEDS: CHOLECALCIFEROL 1,000 UNIT TABLET PO SCH (09:25)
[2017-11-17] MEDS: TAMSULOSIN 0.4 MG CAPSULE PO SCH (09:26)
[2017-11-17] MEDS: DILTIAZEM CD 240 MG CAPSULE PO SCH (09:26)
[2017-11-17] MEDS: ALLOPURINOL 100 MG TABLET PO SCH (09:26)
[2017-11-17] MEDS: GLIMEPIRIDE 4 MG TABLET PO SCH (09:28)
[2017-11-17] MEDS: FUROSEMIDE 40 MG/4 ML VIAL IV SCH (09:31)
[2017-11-17] MEDS: cefTRIAXone 1,000 MG in SYRINGE 1 EACH IV SCH (09:37)
[2017-11-17] MEDS: CLOTRIMAZOLE 1% CREAM 15 GM TUBE TOP SCH (12:47)
[2017-11-17 12:48] VITALS: BP 136/73
[2017-11-17] MEDS ORDERED: SPIRONOLACTONE 25 MG TABLET PO SCH (17:15)
== END 2017-11-17 15:05 | disposition home or self-care (01) | DRG 280 ==
LOC: EDUNIT# → EDBD → N.ED 16:22 → N.EDINP 18:15 → SUATTDRO 18:15 → N.ICU 18:36 → N.TELEN 11-13 18:03
PROVIDERS: ADMIT Family Medicine

== ENCOUNTER 2018-03-17 13:59 | Inpatient (IN) ==
[2018-03-17] MEDS ORDERED: PANTOPRAZOLE 40 MG VIAL IV STA (14:29)
[2018-03-17 14:48] LABS: Eosinophils # 0.1 10*3/uL (0.0-0.87); Eosinophils % 0.5 % (0.00-10.9); NRBC # 0.02 10*3/uL; Neutrophils % 83.4 % (38.7-73.9)
[2018-03-17 14:56] LABS: PT Patient Result 10.7 SECS
[2018-03-17 15:06] LABS: Basophils # 0.1 10*3/uL (0.0-0.2); Basophils % 0.4 % (0.0-0.8); Immature Granulocytes % 0.9 %; Lymphocytes % 8.2 % (21.2-54.2); Mean Corpuscular HGB Conc 27.5 GM/DL (32-36); Mean Corpuscular Hemoglobin 23 PG (27-34); Mean Corpuscular Volume 83.3 FL (87-102); Mean Platelet Volume 10.3 FL (9.6-12.0); Monocytes # 0.8 10*3/uL (0.11-0.8); Monocytes % 6.6 % (1.7-12.7); Neutrophils # 9.7 10*3/uL (1.4-7.4); Platelet Count 254 T/CUMM (130-400); Red Blood Count 2.88 MC/CUMM (3.8-5.5); Red Cell Distribution Width 16.7 % (9.3-17.3); White Blood Count 11.7 T/CUMM (4-12)
[2018-03-17 15:07] LABS: Hemoglobin 6.6 GM/DL (14.0-18.0)
[2018-03-17 15:16] LABS: Alanine Aminotransferase < 9 U/L (16-61); Albumin 2.8 G/DL (3.4-5.0); Alkaline Phosphatase 57 U/L (45-117); Aspartate Amino Transferase 6 U/L (0-37); Blood Urea Nitrogen 46 MG/DL (7-18); Calcium 8.4 MG/DL (8.5-10.1); Glucose 144 MG/DL (74-106); Osmolality,Calculated 293.4 MOS/KG (273-304); Potassium 4.2 MMOL/L (3.5-5.1); Sodium 140 MMOL/L (136-145); Total Protein 6.4 G/DL (6.4-8.3)
[2018-03-17] MEDS ORDERED: SODIUM CHLORIDE 0.9% 1,000 ML IV PRN (15:17)
[2018-03-17] MEDS ORDERED: ACETAMINOPHEN 325 MG TABLET PO PRN (16:34)
[2018-03-17] MEDS ORDERED: FUROSEMIDE 40 MG/4 ML VIAL IV PRN (16:37)
[2018-03-17] MEDS ORDERED: NITROGLYCERIN SL 0.4 MG TABLET SL PRN (16:39)
[2018-03-17] MEDS ORDERED: DEXTROSE 50% 25 GM/50 ML VIAL IV PRN (16:40)
[2018-03-17] MEDS ORDERED: GLUCAGON 1 MG VIAL IM PRN (16:40)
[2018-03-17] MEDS ORDERED: INFLUENZA VIRUS VACCINE 0.5 ML SYRINGE IM ONE (19:52)
[2018-03-17] MEDS ORDERED: FUROSEMIDE 40 MG TABLET PO SCH (21:00)
[2018-03-17] MEDS: POTASSIUM CHLORIDE 20 MEQ TABLET PO SCH ×2 (21:27→21:48)
[2018-03-17] MEDS: CARBIDOPA/LEVODOPA CR 50-200 MG TABLET PO SCH (21:41)
[2018-03-17] MEDS: ALLOPURINOL 100 MG TABLET PO SCH (21:41)
[2018-03-17] MEDS: GABAPENTIN 300 MG CAPSULE PO SCH (21:41)
[2018-03-17] MEDS: LOVASTATIN 20 MG TABLET PO SCH (21:42)
[2018-03-17 21:48] LABS: Hematocrit 21.8 VOL% (42.0-52.0)
[2018-03-17] MEDS: INSULIN REGULAR 100 UNIT/ML SUBCUT SCH (21:48)
[2018-03-17] MEDS: PANTOPRAZOLE 40 MG VIAL IV SCH (21:48)
[2018-03-17 21:53] LABS: Hemoglobin 5.8 GM/DL (14.0-18.0)
[2018-03-18 07:01] LABS: Hematocrit 25.6 VOL% (42.0-52.0); Hemoglobin 7.1 GM/DL (14.0-18.0)
[2018-03-18 07:29] LABS: Calcium 8.2 MG/DL (8.5-10.1); Osmolality,Calculated 284.4 MOS/KG (273-304); Potassium 4.3 MMOL/L (3.5-5.1)
[2018-03-18] MEDS ORDERED: LOSARTAN 25 MG TABLET PO SCH (09:00)
[2018-03-18] MEDS ORDERED: SPIRONOLACTONE 25 MG TABLET PO SCH (09:00)
[2018-03-18] MEDS: PANTOPRAZOLE 40 MG VIAL IV SCH ×3 (09:49→20:49)
[2018-03-18] MEDS: INSULIN REGULAR 100 UNIT/ML SUBCUT SCH ×3 (10:06→19:55)
[2018-03-18] MEDS: DILTIAZEM CD 240 MG CAPSULE PO SCH (10:07)
[2018-03-18] MEDS: TAMSULOSIN 0.4 MG CAPSULE PO SCH (10:07)
[2018-03-18] MEDS: CARBIDOPA/LEVODOPA CR 50-200 MG TABLET PO SCH ×3 (10:08→20:50)
[2018-03-18] MEDS: FUROSEMIDE 40 MG TABLET PO SCH ×2 (10:08→14:28)
[2018-03-18] MEDS: MAGNESIUM OXIDE 400 MG TABLET PO SCH (10:08)
[2018-03-18] MEDS: GABAPENTIN 300 MG CAPSULE PO SCH ×3 (10:08→20:49)
[2018-03-18] MEDS: POTASSIUM CHLORIDE 20 MEQ TABLET PO SCH ×3 (10:08→20:50)
[2018-03-18] MEDS: ALLOPURINOL 100 MG TABLET PO SCH ×2 (10:09→20:50)
[2018-03-18] MEDS ORDERED: ESMOLOL 100 MG/10 ML VIAL IV ONE (11:29)
[2018-03-18] MEDS ORDERED: LIDOCAINE 1% 5 ML VIAL ONE (11:29)
[2018-03-18] MEDS ORDERED: SODIUM CHLORIDE 0.9% 1,000 ML IV PRN (13:49)
[2018-03-18] MEDS ORDERED: FUROSEMIDE 40 MG/4 ML VIAL IV ONE (13:51)
[2018-03-18] MEDS: BISACODYL 5 MG TABLET PO SCH (14:27)
[2018-03-18 14:57] LABS: Hematocrit 25.1 VOL% (42.0-52.0); Hemoglobin 7.2 GM/DL (14.0-18.0)
[2018-03-18] MEDS: FLUCONAZOLE 100 MG TABLET PO SCH (17:08)
[2018-03-18] MEDS: ZINC OXIDE PASTE 113 GM TUBE TOP SCH (20:51)
[2018-03-19] MEDS ORDERED: FUROSEMIDE 40 MG/4 ML VIAL ONE (00:52)
[2018-03-19] MEDS: INSULIN REGULAR 100 UNIT/ML SUBCUT SCH ×5 (01:04→21:16)
[2018-03-19] MEDS: LOVASTATIN 20 MG TABLET PO SCH ×2 (01:05→22:16)
[2018-03-19 01:51] LABS: Calcium 8.4 MG/DL (8.5-10.1); Osmolality,Calculated 286.3 MOS/KG (273-304); Potassium 4.2 MMOL/L (3.5-5.1)
[2018-03-19 01:53] LABS: Basophils % 0.3 % (0.0-0.8); Eosinophils # 0.2 10*3/uL (0.0-0.87); Eosinophils % 1.6 % (0.00-10.9); Hematocrit 29.5 VOL% (42.0-52.0); Hemoglobin 8.7 GM/DL (14.0-18.0); Immature Granulocytes % 0.7 %; Immature Granulocytes Absolute 0.06 #; Lymphocytes # 0.9 10*3/uL (1.4-4.0); Lymphocytes % 9.3 % (21.2-54.2); Mean Corpuscular HGB Conc 29.5 GM/DL (32-36); Mean Corpuscular Hemoglobin 24 PG (27-34); Mean Corpuscular Volume 82.6 FL (87-102); Mean Platelet Volume 9.6 FL (9.6-12.0); Monocytes # 0.8 10*3/uL (0.11-0.8); Monocytes % 8.2 % (1.7-12.7); NRBC # 0.02 10*3/uL; Neutrophils # 7.3 10*3/uL (1.4-7.4); Neutrophils % 79.9 % (38.7-73.9); Platelet Count 205 T/CUMM (130-400); Red Blood Count 3.57 MC/CUMM (3.8-5.5); Red Cell Distribution Width 16.1 % (9.3-17.3); White Blood Count 9.1 T/CUMM (4-12)
[2018-03-19 01:58] LABS: Platelet Estimate Normal; Polychromasia Few
[2018-03-19 06:56] LABS: Hemoglobin 8.1 GM/DL (14.0-18.0)
[2018-03-19] MEDS: FLUCONAZOLE 100 MG TABLET PO SCH (09:39)
[2018-03-19] MEDS: CARBIDOPA/LEVODOPA CR 50-200 MG TABLET PO SCH ×3 (09:39→21:17)
[2018-03-19] MEDS: CLOPIDOGREL 75 MG TABLET PO SCH (09:39)
[2018-03-19] MEDS: FUROSEMIDE 40 MG TABLET PO SCH ×2 (09:39→15:09)
[2018-03-19] MEDS: GABAPENTIN 300 MG CAPSULE PO SCH ×3 (09:39→21:17)
[2018-03-19] MEDS: ALLOPURINOL 100 MG TABLET PO SCH ×2 (09:40→21:17)
[2018-03-19] MEDS: TAMSULOSIN 0.4 MG CAPSULE PO SCH (09:40)
[2018-03-19] MEDS: POTASSIUM CHLORIDE 20 MEQ TABLET PO SCH ×2 (09:40→21:18)
[2018-03-19] MEDS: ASPIRIN EC 81 MG TABLET PO SCH (09:40)
[2018-03-19] MEDS: MAGNESIUM OXIDE 400 MG TABLET PO SCH (09:40)
[2018-03-19] MEDS: DILTIAZEM CD 240 MG CAPSULE PO SCH (09:41)
[2018-03-19] MEDS: PANTOPRAZOLE 40 MG VIAL IV SCH ×2 (09:42→19:24)
[2018-03-19] MEDS: BISACODYL 5 MG TABLET PO SCH (09:49)
[2018-03-19] MEDS: ZINC OXIDE PASTE 113 GM TUBE TOP SCH ×2 (09:52→22:16)
[2018-03-20 05:20] LABS: Calcium 8.7 MG/DL (8.5-10.1); Osmolality,Calculated 288.4 MOS/KG (273-304); Potassium 4.2 MMOL/L (3.5-5.1)
[2018-03-20 05:35] LABS: Basophils % 0.3 % (0.0-0.8); Eosinophils # 0.1 10*3/uL (0.0-0.87); Eosinophils % 1.2 % (0.00-10.9); Hematocrit 28.3 VOL% (42.0-52.0); Hemoglobin 8.2 GM/DL (14.0-18.0); Immature Granulocytes % 0.5 %; Immature Granulocytes Absolute 0.05 #; Lymphocytes % 10.4 % (21.2-54.2); Mean Corpuscular Hemoglobin 24 PG (27-34); Mean Corpuscular Volume 83.7 FL (87-102); Mean Platelet Volume 10.3 FL (9.6-12.0); Monocytes # 0.8 10*3/uL (0.11-0.8); Monocytes % 8.3 % (1.7-12.7); Neutrophils # 7.7 10*3/uL (1.4-7.4); Neutrophils % 79.3 % (38.7-73.9); Platelet Count 202 T/CUMM (130-400); Red Blood Count 3.38 MC/CUMM (3.8-5.5); Red Cell Distribution Width 16.3 % (9.3-17.3); White Blood Count 9.7 T/CUMM (4-12)
[2018-03-20] MEDS: INSULIN REGULAR 100 UNIT/ML SUBCUT SCH ×4 (08:58→20:24)
[2018-03-20] MEDS: DILTIAZEM CD 240 MG CAPSULE PO SCH (09:00)
[2018-03-20] MEDS: MAGNESIUM OXIDE 400 MG TABLET PO SCH (09:00)
[2018-03-20] MEDS: ALLOPURINOL 100 MG TABLET PO SCH ×2 (09:01→20:24)
[2018-03-20] MEDS: FLUCONAZOLE 100 MG TABLET PO SCH (09:01)
[2018-03-20] MEDS: CARBIDOPA/LEVODOPA CR 50-200 MG TABLET PO SCH ×3 (09:01→20:24)
[2018-03-20] MEDS: GABAPENTIN 300 MG CAPSULE PO SCH ×3 (09:01→20:23)
[2018-03-20] MEDS: FUROSEMIDE 40 MG TABLET PO SCH (09:01)
[2018-03-20] MEDS: BISACODYL 5 MG TABLET PO SCH (09:01)
[2018-03-20] MEDS: CLOPIDOGREL 75 MG TABLET PO SCH (09:01)
[2018-03-20] MEDS: ASPIRIN EC 81 MG TABLET PO SCH (09:01)
[2018-03-20] MEDS: PANTOPRAZOLE 40 MG VIAL IV SCH (09:02)
[2018-03-20] MEDS: ZINC OXIDE PASTE 113 GM TUBE TOP SCH ×2 (09:19→20:25)
[2018-03-20] MEDS: POTASSIUM CHLORIDE 20 MEQ TABLET PO SCH ×2 (09:34→20:24)
[2018-03-20] MEDS: TAMSULOSIN 0.4 MG CAPSULE PO SCH (09:34)
[2018-03-20] MEDS: PSYLLIUM POWDER 3.7 GM/PACK PO SCH (10:44)
[2018-03-20] MEDS: POLYETHYLENE GLYCOL POWDER 17 GM PACK PO SCH (10:45)
[2018-03-20] MEDS ORDERED: BISACODYL 10 MG SUPP RECTAL ONE (15:17)
[2018-03-20] MEDS: LOVASTATIN 20 MG TABLET PO SCH (20:24)
[2018-03-21 04:53] LABS: Basophils % 0.4 % (0.0-0.8); Eosinophils # 0.2 10*3/uL (0.0-0.87); Eosinophils % 1.6 % (0.00-10.9); Hematocrit 27.8 VOL% (42.0-52.0); Immature Granulocytes % 0.4 %; Immature Granulocytes Absolute 0.04 #; Lymphocytes # 1.1 10*3/uL (1.4-4.0); Lymphocytes % 12.1 % (21.2-54.2); Mean Corpuscular HGB Conc 28.8 GM/DL (32-36); Mean Corpuscular Hemoglobin 24 PG (27-34); Mean Corpuscular Volume 84.5 FL (87-102); Mean Platelet Volume 10.5 FL (9.6-12.0); Monocytes # 0.7 10*3/uL (0.11-0.8); Monocytes % 7.7 % (1.7-12.7); Neutrophils # 7.1 10*3/uL (1.4-7.4); Neutrophils % 77.8 % (38.7-73.9); Platelet Count 198 T/CUMM (130-400); Red Blood Count 3.29 MC/CUMM (3.8-5.5); Red Cell Distribution Width 16.5 % (9.3-17.3); White Blood Count 9.1 T/CUMM (4-12)
[2018-03-21 05:02] LABS: Calcium 8.5 MG/DL (8.5-10.1); Osmolality,Calculated 289.3 MOS/KG (273-304); Potassium 4.2 MMOL/L (3.5-5.1)
[2018-03-21 05:07] LABS: Hypochromasia 1+; Ovalocytes Slight; Platelet Estimate Adequate
[2018-03-21] MEDS: NYSTATIN CREAM 15 GM TUBE TOP SCH ×4 (05:54→20:48)
[2018-03-21] MEDS: INSULIN REGULAR 100 UNIT/ML SUBCUT SCH ×4 (09:13→20:46)
[2018-03-21] MEDS: DILTIAZEM CD 240 MG CAPSULE PO SCH (09:31)
[2018-03-21] MEDS: BISACODYL 5 MG TABLET PO SCH (09:31)
[2018-03-21] MEDS: FUROSEMIDE 40 MG TABLET PO SCH (09:31)
[2018-03-21] MEDS: MAGNESIUM OXIDE 400 MG TABLET PO SCH (09:31)
[2018-03-21] MEDS: GABAPENTIN 300 MG CAPSULE PO SCH ×3 (09:32→20:45)
[2018-03-21] MEDS: ALLOPURINOL 100 MG TABLET PO SCH ×2 (09:32→20:46)
[2018-03-21] MEDS: POTASSIUM CHLORIDE 20 MEQ TABLET PO SCH ×2 (09:32→20:45)
[2018-03-21] MEDS: PSYLLIUM POWDER 3.7 GM/PACK PO SCH (09:32)
[2018-03-21] MEDS: CARBIDOPA/LEVODOPA CR 50-200 MG TABLET PO SCH ×3 (09:32→20:45)
[2018-03-21] MEDS: CLOPIDOGREL 75 MG TABLET PO SCH (09:32)
[2018-03-21] MEDS: TAMSULOSIN 0.4 MG CAPSULE PO SCH (09:32)
[2018-03-21] MEDS: PANTOPRAZOLE 40 MG VIAL IV SCH (09:32)
[2018-03-21] MEDS: FLUCONAZOLE 100 MG TABLET PO SCH (09:32)
[2018-03-21] MEDS: POLYETHYLENE GLYCOL POWDER 17 GM PACK PO SCH (09:32)
[2018-03-21] MEDS: ASPIRIN EC 81 MG TABLET PO SCH (09:32)
[2018-03-21] MEDS: ZINC OXIDE PASTE 113 GM TUBE TOP SCH ×2 (09:37→20:46)
[2018-03-21] MEDS ORDERED: SODIUM CHLORIDE 0.9% IV ONE (13:30)
[2018-03-21] MEDS ORDERED: IRON DEXTRAN 25 MG in SYRINGE 1 EACH IV ONE (13:30)
[2018-03-21] MEDS ORDERED: IRON DEXTRAN IV ONE (13:30)
[2018-03-21] MEDS ORDERED: IRON SUCROSE 300 MG in SODIUM CHLORIDE 0.9% 100 ML IV ONE (14:30)
[2018-03-21] MEDS: BISACODYL 10 MG SUPP RECTAL ONE (15:12)
[2018-03-21] MEDS ORDERED: SORBITOL 30 ML BOTTLE PO ONE (16:00)
[2018-03-21] MEDS: LOVASTATIN 20 MG TABLET PO SCH (20:45)
[2018-03-22 05:41] LABS: Calcium 8.7 MG/DL (8.5-10.1); Osmolality,Calculated 284.5 MOS/KG (273-304); Potassium 4.4 MMOL/L (3.5-5.1)
[2018-03-22 06:23] LABS: Basophils % 0.3 % (0.0-0.8); Eosinophils # 0.2 10*3/uL (0.0-0.87); Eosinophils % 1.9 % (0.00-10.9); Hematocrit 28.9 VOL% (42.0-52.0); Immature Granulocytes % 0.9 %; Immature Granulocytes Absolute 0.08 #; Lymphocytes % 10.8 % (21.2-54.2); Mean Corpuscular Hemoglobin 23 PG (27-34); Mean Corpuscular Volume 83.5 FL (87-102); Mean Platelet Volume 10.8 FL (9.6-12.0); Monocytes # 0.9 10*3/uL (0.11-0.8); Monocytes % 9.4 % (1.7-12.7); Neutrophils % 76.7 % (38.7-73.9); Platelet Count 217 T/CUMM (130-400); Red Blood Count 3.46 MC/CUMM (3.8-5.5); Red Cell Distribution Width 16.6 % (9.3-17.3); White Blood Count 9.1 T/CUMM (4-12)
[2018-03-22 06:25] LABS: Hemoglobin 8.1 GM/DL (14.0-18.0)
[2018-03-22 06:32] LABS: Hypochromasia 1+; Platelet Estimate Adequate
[2018-03-22] MEDS: DILTIAZEM CD 240 MG CAPSULE PO SCH (09:57)
[2018-03-22] MEDS: INSULIN REGULAR 100 UNIT/ML SUBCUT SCH ×3 (09:57→20:43)
[2018-03-22] MEDS: MAGNESIUM OXIDE 400 MG TABLET PO SCH (09:58)
[2018-03-22] MEDS: ASPIRIN EC 81 MG TABLET PO SCH (09:59)
[2018-03-22] MEDS: POTASSIUM CHLORIDE 20 MEQ TABLET PO SCH ×2 (09:59→20:43)
[2018-03-22] MEDS: CARBIDOPA/LEVODOPA CR 50-200 MG TABLET PO SCH ×3 (09:59→20:43)
[2018-03-22] MEDS: FUROSEMIDE 40 MG TABLET PO SCH (09:59)
[2018-03-22] MEDS: FLUCONAZOLE 100 MG TABLET PO SCH (09:59)
[2018-03-22] MEDS: CLOPIDOGREL 75 MG TABLET PO SCH (09:59)
[2018-03-22] MEDS: TAMSULOSIN 0.4 MG CAPSULE PO SCH (09:59)
[2018-03-22] MEDS: GABAPENTIN 300 MG CAPSULE PO SCH ×3 (09:59→20:43)
[2018-03-22] MEDS: PSYLLIUM POWDER 3.7 GM/PACK PO SCH (09:59)
[2018-03-22] MEDS: NYSTATIN CREAM 15 GM TUBE TOP SCH ×3 (10:00→20:44)
[2018-03-22] MEDS: ZINC OXIDE PASTE 113 GM TUBE TOP SCH ×2 (10:00→20:44)
[2018-03-22] MEDS: PANTOPRAZOLE 40 MG VIAL IV SCH (10:00)
[2018-03-22] MEDS: ALLOPURINOL 100 MG TABLET PO SCH ×2 (10:00→20:43)
[2018-03-22] MEDS: BISACODYL 5 MG TABLET PO SCH (10:07)
[2018-03-22] MEDS: POLYETHYLENE GLYCOL POWDER 17 GM PACK PO SCH (10:07)
[2018-03-22] MEDS: BISACODYL 10 MG SUPP RECTAL ONE (17:44)
[2018-03-22] MEDS: LOVASTATIN 20 MG TABLET PO SCH (20:43)
[2018-03-23] MEDS: INSULIN REGULAR 100 UNIT/ML SUBCUT SCH ×4 (08:14→20:55)
[2018-03-23 09:02] LABS: Hematocrit 28.3 VOL% (42.0-52.0)
[2018-03-23] MEDS: PANTOPRAZOLE 40 MG VIAL IV SCH (10:07)
[2018-03-23] MEDS: POLYETHYLENE GLYCOL POWDER 17 GM PACK PO SCH (10:09)
[2018-03-23] MEDS: GABAPENTIN 300 MG CAPSULE PO SCH ×3 (10:09→20:56)
[2018-03-23] MEDS: PSYLLIUM POWDER 3.7 GM/PACK PO SCH (10:09)
[2018-03-23] MEDS: BISACODYL 5 MG TABLET PO SCH (10:11)
[2018-03-23] MEDS: ALLOPURINOL 100 MG TABLET PO SCH ×2 (10:11→20:55)
[2018-03-23] MEDS: ASPIRIN EC 81 MG TABLET PO SCH (10:11)
[2018-03-23] MEDS: DILTIAZEM CD 240 MG CAPSULE PO SCH (10:11)
[2018-03-23] MEDS: MAGNESIUM OXIDE 400 MG TABLET PO SCH (10:11)
[2018-03-23] MEDS: FUROSEMIDE 40 MG TABLET PO SCH (10:11)
[2018-03-23] MEDS: FLUCONAZOLE 100 MG TABLET PO SCH (10:12)
[2018-03-23] MEDS: CLOPIDOGREL 75 MG TABLET PO SCH (10:12)
[2018-03-23] MEDS: TAMSULOSIN 0.4 MG CAPSULE PO SCH (10:12)
[2018-03-23] MEDS: POTASSIUM CHLORIDE 20 MEQ TABLET PO SCH ×2 (10:12→20:56)
[2018-03-23] MEDS: CARBIDOPA/LEVODOPA CR 50-200 MG TABLET PO SCH ×3 (10:12→20:56)
[2018-03-23] MEDS: NYSTATIN CREAM 15 GM TUBE TOP SCH ×3 (10:13→20:57)
[2018-03-23] MEDS: ZINC OXIDE PASTE 113 GM TUBE TOP SCH ×2 (10:13→20:57)
[2018-03-23] MEDS: FERROUS SULFATE 325 MG TABLET PO SCH ×2 (16:37→20:56)
[2018-03-23] MEDS: ONDANSETRON 4 MG/2 ML VIAL IV PRN (18:38)
[2018-03-23] MEDS: ASCORBIC ACID 500 MG TABLET PO SCH (20:56)
[2018-03-23] MEDS: LOVASTATIN 20 MG TABLET PO SCH (20:57)
[2018-03-24] MEDS: INSULIN REGULAR 100 UNIT/ML SUBCUT SCH ×4 (07:34→20:49)
[2018-03-24] MEDS: PANTOPRAZOLE 40 MG VIAL IV SCH (08:56)
[2018-03-24] MEDS: DILTIAZEM CD 240 MG CAPSULE PO SCH (08:59)
[2018-03-24] MEDS: MAGNESIUM OXIDE 400 MG TABLET PO SCH (08:59)
[2018-03-24] MEDS: FUROSEMIDE 40 MG TABLET PO SCH (09:00)
[2018-03-24] MEDS: POTASSIUM CHLORIDE 20 MEQ TABLET PO SCH ×2 (09:00→20:49)
[2018-03-24] MEDS: FERROUS SULFATE 325 MG TABLET PO SCH ×3 (09:01→20:48)
[2018-03-24] MEDS: CARBIDOPA/LEVODOPA CR 50-200 MG TABLET PO SCH ×3 (09:01→20:48)
[2018-03-24] MEDS: ALLOPURINOL 100 MG TABLET PO SCH ×2 (09:01→20:48)
[2018-03-24] MEDS: CLOPIDOGREL 75 MG TABLET PO SCH (09:01)
[2018-03-24] MEDS: BISACODYL 5 MG TABLET PO SCH (09:02)
[2018-03-24] MEDS: GABAPENTIN 300 MG CAPSULE PO SCH ×3 (09:02→20:48)
[2018-03-24] MEDS: ASCORBIC ACID 500 MG TABLET PO SCH ×2 (09:02→20:48)
[2018-03-24] MEDS: ASPIRIN EC 81 MG TABLET PO SCH (09:02)
[2018-03-24] MEDS: NYSTATIN CREAM 15 GM TUBE TOP SCH ×3 (09:03→20:49)
[2018-03-24] MEDS: TAMSULOSIN 0.4 MG CAPSULE PO SCH (09:03)
[2018-03-24] MEDS: FLUCONAZOLE 100 MG TABLET PO SCH (09:03)
[2018-03-24] MEDS: POLYETHYLENE GLYCOL POWDER 17 GM PACK PO SCH (09:03)
[2018-03-24] MEDS: ZINC OXIDE PASTE 113 GM TUBE TOP SCH ×2 (09:07→20:49)
[2018-03-24] MEDS: PSYLLIUM POWDER 3.7 GM/PACK PO SCH (10:21)
[2018-03-24 10:28] LABS: Hematocrit 27.6 VOL% (42.0-52.0); Hemoglobin 7.7 GM/DL (14.0-18.0)
[2018-03-24] MEDS ORDERED: BISACODYL 10 MG SUPP RECTAL PRN (18:06)
[2018-03-24] MEDS: LOVASTATIN 20 MG TABLET PO SCH (20:47)
[2018-03-25 06:19] LABS: Basophils % 0.4 % (0.0-0.8); Eosinophils # 0.2 10*3/uL (0.0-0.87); Eosinophils % 1.7 % (0.00-10.9); Hematocrit 29.1 VOL% (42.0-52.0); Immature Granulocytes % 0.8 %; Immature Granulocytes Absolute 0.08 #; Lymphocytes # 1.1 10*3/uL (1.4-4.0); Lymphocytes % 10.3 % (21.2-54.2); Mean Corpuscular HGB Conc 27.5 GM/DL (32-36); Mean Corpuscular Hemoglobin 24 PG (27-34); Mean Corpuscular Volume 85.8 FL (87-102); Mean Platelet Volume 10.6 FL (9.6-12.0); Monocytes # 0.7 10*3/uL (0.11-0.8); Monocytes % 6.8 % (1.7-12.7); NRBC # 0.02 10*3/uL; Neutrophils # 8.3 10*3/uL (1.4-7.4); Platelet Count 231 T/CUMM (130-400); Red Blood Count 3.39 MC/CUMM (3.8-5.5); White Blood Count 10.3 T/CUMM (4-12)
[2018-03-25 06:29] LABS: Hypochromasia 1+; Platelet Estimate Adequate
[2018-03-25] MEDS ORDERED: TUBERCULIN SKIN TEST 0.1 ML SYRINGE INTRADERM ONE (08:01)
[2018-03-25] MEDS: INSULIN REGULAR 100 UNIT/ML SUBCUT SCH ×2 (10:28→14:07)
[2018-03-25] MEDS: ALLOPURINOL 100 MG TABLET PO SCH (10:29)
[2018-03-25] MEDS: FUROSEMIDE 40 MG TABLET PO SCH (10:29)
[2018-03-25] MEDS: ASCORBIC ACID 500 MG TABLET PO SCH (10:29)
[2018-03-25] MEDS: DILTIAZEM CD 240 MG CAPSULE PO SCH (10:29)
[2018-03-25] MEDS: MAGNESIUM OXIDE 400 MG TABLET PO SCH (10:29)
[2018-03-25] MEDS: CLOPIDOGREL 75 MG TABLET PO SCH (10:30)
[2018-03-25] MEDS: CARBIDOPA/LEVODOPA CR 50-200 MG TABLET PO SCH (10:30)
[2018-03-25] MEDS: GABAPENTIN 300 MG CAPSULE PO SCH (10:30)
[2018-03-25] MEDS: FLUCONAZOLE 100 MG TABLET PO SCH (10:30)
[2018-03-25] MEDS: ASPIRIN EC 81 MG TABLET PO SCH (10:30)
[2018-03-25] MEDS: POTASSIUM CHLORIDE 20 MEQ TABLET PO SCH (10:30)
[2018-03-25] MEDS: FERROUS SULFATE 325 MG TABLET PO SCH (10:30)
[2018-03-25] MEDS: TAMSULOSIN 0.4 MG CAPSULE PO SCH (10:30)
[2018-03-25] MEDS: ONDANSETRON 4 MG/2 ML VIAL IV PRN (10:33)
[2018-03-25] MEDS: POLYETHYLENE GLYCOL POWDER 17 GM PACK PO SCH (10:38)
[2018-03-25] MEDS: PSYLLIUM POWDER 3.7 GM/PACK PO SCH (10:38)
[2018-03-25] MEDS: BISACODYL 5 MG TABLET PO SCH (10:38)
[2018-03-25] MEDS: PANTOPRAZOLE 40 MG VIAL IV SCH (10:38)
[2018-03-25] MEDS: NYSTATIN CREAM 15 GM TUBE TOP SCH (10:39)
[2018-03-25] MEDS: ZINC OXIDE PASTE 113 GM TUBE TOP SCH (10:39)
[2018-03-25 15:45] VITALS: BP 131/58
== END 2018-03-25 15:20 | disposition swing bed (61) | DRG 377 ==
LOC: N.ED 13:59 → N.EDINP 16:34 → SUATTDRO 16:34 → N.4E 18:45
PROVIDERS: ADMIT Internal Medicine; ATTEND Internal Medicine

== ENCOUNTER 2018-04-11 12:58 | Inpatient (IN) ==
[2018-04-11] MEDS ORDERED: NITROGLYCERIN SL 0.4 MG TABLET SL PRN (17:26)
[2018-04-11] MEDS ORDERED: ALBUTEROL 2.5 MG/3 ML NEB RESP TX PRN (17:33)
[2018-04-11 18:05] LABS: Basophils # 0.1 10*3/uL (0.0-0.2); Basophils % 0.6 % (0.0-0.8)
[2018-04-11 18:12] LABS: Immature Granulocytes % 0.4 %; Immature Granulocytes Absolute 0.03 #; Mean Corpuscular Hemoglobin 24 PG (27-34); Platelet Count 313 T/CUMM (130-400); Red Cell Distribution Width 18.4 % (9.3-17.3)
[2018-04-11 18:19] LABS: Calcium 9.2 MG/DL (8.5-10.1); Osmolality,Calculated 281.7 MOS/KG (273-304); Potassium 4.8 MMOL/L (3.5-5.1)
[2018-04-11] MEDS: PIPERACILLIN/TAZOBACTAM 3,375 MG in SODIUM CHLORIDE 0.9% 100 ML IV SCH (18:19)
[2018-04-11 18:31] LABS: Eosinophils # 0.1 10*3/uL (0.0-0.87); Eosinophils % 1.3 % (0.00-10.9); Lymphocytes % 11.3 % (21.2-54.2); Mean Corpuscular HGB Conc 28.6 GM/DL (32-36); Mean Corpuscular Volume 82.5 FL (87-102); Mean Platelet Volume 10.3 FL (9.6-12.0); Monocytes # 0.6 10*3/uL (0.11-0.8); Monocytes % 6.7 % (1.7-12.7); Neutrophils # 6.7 10*3/uL (1.4-7.4); Neutrophils % 79.7 % (38.7-73.9); Red Blood Count 4.45 MC/CUMM (3.8-5.5); White Blood Count 8.4 T/CUMM (4-12)
[2018-04-11 18:34] LABS: Hematocrit 36.7 VOL% (42.0-52.0); Hemoglobin 10.5 GM/DL (14.0-18.0)
[2018-04-11] MEDS: ALBUTEROL/IPRATROPIUM 3 ML NEB RESP TX SCH (19:52)
[2018-04-11] MEDS ORDERED: POLYETHYLENE GLYCOL POWDER 17 GM PACK PO SCH (21:00)
[2018-04-11] MEDS: POTASSIUM CHLORIDE 20 MEQ TABLET PO SCH (21:37)
[2018-04-11] MEDS: SIMVASTATIN 10 MG TABLET PO SCH (21:37)
[2018-04-11] MEDS: CARBIDOPA/LEVODOPA CR 50-200 MG TABLET PO SCH (21:37)
[2018-04-11] MEDS: ALLOPURINOL 100 MG TABLET PO SCH (21:37)
[2018-04-11] MEDS: DILTIAZEM CD 240 MG CAPSULE PO SCH (21:37)
[2018-04-11] MEDS: ASCORBIC ACID 500 MG TABLET PO SCH (21:38)
[2018-04-11] MEDS: PANTOPRAZOLE 40 MG VIAL IV SCH (21:38)
[2018-04-11] MEDS: NYSTATIN CREAM 15 GM TUBE TOP SCH (21:39)
[2018-04-11] MEDS: LEVOFLOXACIN INJ 750 MG in PREMIX 1 EACH IV SCH (23:00)
[2018-04-12] MEDS: VANCOMYCIN INJ 2,250 MG in SODIUM CHLORIDE 0.9% 500 ML IV SCH ×3 (00:30→23:31)
[2018-04-12] MEDS: ALBUTEROL/IPRATROPIUM 3 ML NEB RESP TX SCH ×4 (00:35→19:26)
[2018-04-12] MEDS: PIPERACILLIN/TAZOBACTAM 3,375 MG in SODIUM CHLORIDE 0.9% 100 ML IV SCH ×3 (02:40→17:44)
[2018-04-12 05:53] LABS: Calcium 8.8 MG/DL (8.5-10.1); Osmolality,Calculated 286.3 MOS/KG (273-304); Potassium 4.3 MMOL/L (3.5-5.1)
[2018-04-12] MEDS: PANTOPRAZOLE 40 MG VIAL IV SCH ×2 (09:44→20:51)
[2018-04-12] MEDS: DILTIAZEM CD 240 MG CAPSULE PO SCH ×2 (09:45→20:41)
[2018-04-12] MEDS: FUROSEMIDE 40 MG TABLET PO SCH (09:45)
[2018-04-12] MEDS: MAGNESIUM OXIDE 400 MG TABLET PO SCH (09:45)
[2018-04-12] MEDS: ASCORBIC ACID 500 MG TABLET PO SCH ×2 (09:45→20:41)
[2018-04-12] MEDS: ALLOPURINOL 100 MG TABLET PO SCH ×2 (09:45→20:41)
[2018-04-12] MEDS: ESCITALOPRAM 10 MG TABLET PO SCH (09:45)
[2018-04-12] MEDS: POTASSIUM CHLORIDE 20 MEQ TABLET PO SCH ×4 (09:46→20:41)
[2018-04-12] MEDS: CARBIDOPA/LEVODOPA CR 50-200 MG TABLET PO SCH ×3 (09:46→20:41)
[2018-04-12] MEDS: NYSTATIN CREAM 15 GM TUBE TOP SCH ×2 (09:46→20:51)
[2018-04-12] MEDS: TAMSULOSIN 0.4 MG CAPSULE PO SCH (09:46)
[2018-04-12] MEDS ORDERED: CLOPIDOGREL 75 MG TABLET PO SCH (12:30)
[2018-04-12] MEDS: ASPIRIN EC 81 MG TABLET PO SCH (12:50)
[2018-04-12] MEDS: ONDANSETRON 4 MG/2 ML VIAL IV PRN (15:09)
[2018-04-12] MEDS ORDERED: SODIUM CHLORIDE 0.65% NASAL SPRAY 45 ML BOTTLE BOTH NARES PRN (19:24)
[2018-04-12] MEDS: SIMVASTATIN 10 MG TABLET PO SCH (20:41)
[2018-04-12] MEDS: MIRTAZAPINE 30 MG TABLET PO SCH (20:41)
[2018-04-12] MEDS: POLYETHYLENE GLYCOL POWDER 17 GM PACK PO SCH (20:42)
[2018-04-12] MEDS: LEVOFLOXACIN INJ 750 MG in PREMIX 1 EACH IV SCH (21:43)
[2018-04-13] MEDS: ALBUTEROL/IPRATROPIUM 3 ML NEB RESP TX SCH ×4 (00:41→19:25)
[2018-04-13] MEDS: PIPERACILLIN/TAZOBACTAM 3,375 MG in SODIUM CHLORIDE 0.9% 100 ML IV SCH ×3 (04:36→17:32)
[2018-04-13 05:37] LABS: Basophils % 0.7 % (0.0-0.8); Eosinophils # 0.1 10*3/uL (0.0-0.87); Hematocrit 35.7 VOL% (42.0-52.0); Immature Granulocytes % 0.5 %; Immature Granulocytes Absolute 0.03 #; Lymphocytes # 0.8 10*3/uL (1.4-4.0); Mean Corpuscular HGB Conc 27.5 GM/DL (32-36); Mean Corpuscular Hemoglobin 23 PG (27-34); Mean Corpuscular Volume 84.8 FL (87-102); Mean Platelet Volume 10.2 FL (9.6-12.0); Monocytes # 0.4 10*3/uL (0.11-0.8); Monocytes % 6.2 % (1.7-12.7); Neutrophils # 4.6 10*3/uL (1.4-7.4); Neutrophils % 77.6 % (38.7-73.9); Platelet Count 281 T/CUMM (130-400); Red Blood Count 4.21 MC/CUMM (3.8-5.5); Red Cell Distribution Width 18.4 % (9.3-17.3)
[2018-04-13 06:01] LABS: Osmolality,Calculated 284.1 MOS/KG (273-304); Potassium 4.3 MMOL/L (3.5-5.1)
[2018-04-13 06:02] LABS: Calcium 9.2 MG/DL (8.5-10.1)
[2018-04-13 06:43] LABS: Hypochromasia 1+; Microcytosis 1+; Ovalocytes Slight
[2018-04-13 06:44] LABS: Platelet Estimate Normal; Spherocytes Slight
[2018-04-13] MEDS ORDERED: FLUCONAZOLE 200 MG TABLET PO ONE (08:10)
[2018-04-13] MEDS ORDERED: PRASUGREL 10 MG TABLET PO ONE (08:13)
[2018-04-13] MEDS: PANTOPRAZOLE 40 MG VIAL IV SCH ×2 (09:08→21:11)
[2018-04-13] MEDS: MAGNESIUM OXIDE 400 MG TABLET PO SCH (09:09)
[2018-04-13] MEDS: ESCITALOPRAM 10 MG TABLET PO SCH ×2 (09:11→09:29)
[2018-04-13] MEDS: ASCORBIC ACID 500 MG TABLET PO SCH ×2 (09:12→21:10)
[2018-04-13] MEDS: CARBIDOPA/LEVODOPA CR 50-200 MG TABLET PO SCH ×3 (09:28→21:10)
[2018-04-13] MEDS: FUROSEMIDE 40 MG TABLET PO SCH (09:28)
[2018-04-13] MEDS: ALLOPURINOL 100 MG TABLET PO SCH ×2 (09:28→21:10)
[2018-04-13] MEDS: DILTIAZEM CD 240 MG CAPSULE PO SCH ×2 (09:28→21:11)
[2018-04-13] MEDS: TAMSULOSIN 0.4 MG CAPSULE PO SCH (09:29)
[2018-04-13] MEDS: ASPIRIN EC 81 MG TABLET PO SCH (09:29)
[2018-04-13 10:41] LABS: INR 1.1; Partial Thromboplastin Time 27.9 SECS (0-40)
[2018-04-13] MEDS: POTASSIUM CHLORIDE 20 MEQ TABLET PO SCH ×4 (11:02→21:10)
[2018-04-13] MEDS: NYSTATIN CREAM 15 GM TUBE TOP SCH ×2 (11:04→21:57)
[2018-04-13] MEDS: VANCOMYCIN INJ 2,250 MG in SODIUM CHLORIDE 0.9% 500 ML IV SCH (14:39)
[2018-04-13] MEDS: ONDANSETRON 4 MG/2 ML VIAL IV PRN (17:31)
[2018-04-13] MEDS: MIRTAZAPINE 30 MG TABLET PO SCH (21:10)
[2018-04-13] MEDS: SIMVASTATIN 10 MG TABLET PO SCH (21:10)
[2018-04-13] MEDS: POLYETHYLENE GLYCOL POWDER 17 GM PACK PO SCH (21:12)
[2018-04-14] MEDS: ALBUTEROL/IPRATROPIUM 3 ML NEB RESP TX SCH ×5 (01:32→22:55)
[2018-04-14] MEDS: PIPERACILLIN/TAZOBACTAM 3,375 MG in SODIUM CHLORIDE 0.9% 100 ML IV SCH (02:11)
[2018-04-14 06:33] LABS: Calcium 8.9 MG/DL (8.5-10.1); Potassium 4.2 MMOL/L (3.5-5.1)
[2018-04-14 06:39] LABS: Basophils % 0.7 % (0.0-0.8); Eosinophils # 0.2 10*3/uL (0.0-0.87); Eosinophils % 2.9 % (0.00-10.9); Hematocrit 36.1 VOL% (42.0-52.0); Immature Granulocytes % 0.5 %; Immature Granulocytes Absolute 0.03 #; Lymphocytes % 17.3 % (21.2-54.2); Mean Corpuscular HGB Conc 27.4 GM/DL (32-36); Mean Corpuscular Hemoglobin 23 PG (27-34); Mean Corpuscular Volume 85.1 FL (87-102); Mean Platelet Volume 10.3 FL (9.6-12.0); Monocytes # 0.5 10*3/uL (0.11-0.8); Monocytes % 8.6 % (1.7-12.7); Neutrophils # 4.1 10*3/uL (1.4-7.4); Platelet Count 289 T/CUMM (130-400); Red Blood Count 4.24 MC/CUMM (3.8-5.5); Red Cell Distribution Width 18.6 % (9.3-17.3); White Blood Count 5.8 T/CUMM (4-12)
[2018-04-14 06:42] LABS: Hemoglobin 9.9 GM/DL (14.0-18.0)
[2018-04-14 06:44] LABS: Calcium 9.1 MG/DL (8.5-10.1); Osmolality,Calculated 283.1 MOS/KG (273-304); Potassium 4.3 MMOL/L (3.5-5.1)
[2018-04-14] MEDS ORDERED: PROMETHAZINE 25 MG/1 ML VIAL IM ONE (07:00)
[2018-04-14] MEDS ORDERED: MIDAZOLAM 2 MG/2 ML VIAL IV ONE (07:30)
[2018-04-14] MEDS ORDERED: LIDOCAINE 2% 20 ML VIAL RESP TX ONE (07:30)
[2018-04-14] MEDS ORDERED: LIDOCAINE 1% 20 ML VIAL MISC INJ ONE (07:30)
[2018-04-14 08:04] LABS: Hypochromasia 1+
[2018-04-14 08:05] LABS: Anisocytosis 1+; Microcytosis 1+; Ovalocytes Few; Platelet Estimate Normal
[2018-04-14] MEDS ORDERED: MIDAZOLAM 2 MG/2 ML VIAL ONE (08:07)
[2018-04-14] MEDS: PANTOPRAZOLE 40 MG VIAL IV SCH (11:55)
[2018-04-14] MEDS: ONDANSETRON 4 MG/2 ML VIAL IV PRN (11:56)
[2018-04-14] MEDS: ASPIRIN EC 81 MG TABLET PO SCH (11:57)
[2018-04-14] MEDS: DILTIAZEM CD 240 MG CAPSULE PO SCH ×2 (11:57→21:04)
[2018-04-14] MEDS: TAMSULOSIN 0.4 MG CAPSULE PO SCH (11:57)
[2018-04-14] MEDS: POTASSIUM CHLORIDE 20 MEQ TABLET PO SCH ×4 (11:57→21:05)
[2018-04-14] MEDS: MAGNESIUM OXIDE 400 MG TABLET PO SCH (11:58)
[2018-04-14] MEDS: PRASUGREL 10 MG TABLET PO SCH (11:58)
[2018-04-14] MEDS: FLUCONAZOLE 200 MG TABLET PO SCH (11:58)
[2018-04-14] MEDS: ALLOPURINOL 100 MG TABLET PO SCH ×2 (11:58→21:04)
[2018-04-14] MEDS: NYSTATIN CREAM 15 GM TUBE TOP SCH ×2 (11:59→21:12)
[2018-04-14] MEDS: ASCORBIC ACID 500 MG TABLET PO SCH ×2 (11:59→21:05)
[2018-04-14] MEDS: CARBIDOPA/LEVODOPA CR 50-200 MG TABLET PO SCH ×3 (11:59→21:05)
[2018-04-14] MEDS: PANTOPRAZOLE 40 MG TABLET PO SCH (18:31)
[2018-04-14] MEDS: MIRTAZAPINE 30 MG TABLET PO SCH (21:04)
[2018-04-14] MEDS: SIMVASTATIN 10 MG TABLET PO SCH (21:05)
[2018-04-14] MEDS: POLYETHYLENE GLYCOL POWDER 17 GM PACK PO SCH (21:12)
[2018-04-15 05:38] LABS: Calcium 9.2 MG/DL (8.5-10.1); Osmolality,Calculated 285.1 MOS/KG (273-304); Potassium 4.8 MMOL/L (3.5-5.1)
[2018-04-15 05:57] LABS: Basophils % 0.6 % (0.0-0.8); Eosinophils # 0.1 10*3/uL (0.0-0.87); Eosinophils % 2.6 % (0.00-10.9); Hematocrit 37.4 VOL% (42.0-52.0); Immature Granulocytes % 0.4 %; Immature Granulocytes Absolute 0.02 #; Lymphocytes # 0.9 10*3/uL (1.4-4.0); Lymphocytes % 18.6 % (21.2-54.2); Mean Corpuscular HGB Conc 27.3 GM/DL (32-36); Mean Corpuscular Hemoglobin 23 PG (27-34); Mean Corpuscular Volume 85.2 FL (87-102); Mean Platelet Volume 11.1 FL (9.6-12.0); Monocytes # 0.5 10*3/uL (0.11-0.8); Monocytes % 9.3 % (1.7-12.7); Neutrophils # 3.5 10*3/uL (1.4-7.4); Neutrophils % 68.5 % (38.7-73.9); Platelet Count 294 T/CUMM (130-400); Red Blood Count 4.39 MC/CUMM (3.8-5.5); Red Cell Distribution Width 18.5 % (9.3-17.3); White Blood Count 5.1 T/CUMM (4-12)
[2018-04-15 06:01] LABS: Hemoglobin 10.2 GM/DL (14.0-18.0)
[2018-04-15] MEDS: PANTOPRAZOLE 40 MG TABLET PO SCH ×2 (06:15→18:12)
[2018-04-15 06:21] LABS: Platelet Estimate Adequate; Polychromasia Slight
[2018-04-15] MEDS: ALBUTEROL/IPRATROPIUM 3 ML NEB RESP TX SCH (07:43)
[2018-04-15] MEDS: DILTIAZEM CD 240 MG CAPSULE PO SCH ×2 (09:19→21:19)
[2018-04-15] MEDS: TAMSULOSIN 0.4 MG CAPSULE PO SCH (09:19)
[2018-04-15] MEDS: CARBIDOPA/LEVODOPA CR 50-200 MG TABLET PO SCH ×3 (09:19→21:20)
[2018-04-15] MEDS: POTASSIUM CHLORIDE 20 MEQ TABLET PO SCH ×4 (09:19→21:19)
[2018-04-15] MEDS: PRASUGREL 10 MG TABLET PO SCH (09:19)
[2018-04-15] MEDS: ASPIRIN EC 81 MG TABLET PO SCH (09:19)
[2018-04-15] MEDS: ASCORBIC ACID 500 MG TABLET PO SCH ×2 (09:19→21:19)
[2018-04-15] MEDS: MAGNESIUM OXIDE 400 MG TABLET PO SCH (09:19)
[2018-04-15] MEDS: FLUCONAZOLE 200 MG TABLET PO SCH (09:19)
[2018-04-15] MEDS: ALLOPURINOL 100 MG TABLET PO SCH ×2 (09:19→21:19)
[2018-04-15] MEDS: NYSTATIN CREAM 15 GM TUBE TOP SCH ×2 (09:27→21:25)
[2018-04-15] MEDS ORDERED: CALCIUM CARBONATE CHEW 500 MG TABLET PO PRN (10:24)
[2018-04-15] MEDS: ONDANSETRON 4 MG/2 ML VIAL IV PRN (15:47)
[2018-04-15] MEDS: SIMVASTATIN 10 MG TABLET PO SCH (21:19)
[2018-04-15] MEDS: MIRTAZAPINE 30 MG TABLET PO SCH (21:19)
[2018-04-15] MEDS: POLYETHYLENE GLYCOL POWDER 17 GM PACK PO SCH (21:23)
[2018-04-16 04:53] LABS: Calcium 9.6 MG/DL (8.5-10.1); Osmolality,Calculated 283.3 MOS/KG (273-304); Potassium 5.1 MMOL/L (3.5-5.1)
[2018-04-16 05:51] LABS: Basophils % 0.7 % (0.0-0.8); Eosinophils # 0.2 10*3/uL (0.0-0.87); Eosinophils % 2.6 % (0.00-10.9); Hematocrit 35.8 VOL% (42.0-52.0); Immature Granulocytes % 0.3 %; Immature Granulocytes Absolute 0.02 #; Lymphocytes % 16.7 % (21.2-54.2); Mean Corpuscular HGB Conc 27.4 GM/DL (32-36); Mean Corpuscular Hemoglobin 23 PG (27-34); Mean Corpuscular Volume 85.4 FL (87-102); Mean Platelet Volume 10.7 FL (9.6-12.0); Monocytes # 0.4 10*3/uL (0.11-0.8); Monocytes % 7.5 % (1.7-12.7); Neutrophils # 4.2 10*3/uL (1.4-7.4); Neutrophils % 72.2 % (38.7-73.9); Platelet Count 274 T/CUMM (130-400); Red Blood Count 4.19 MC/CUMM (3.8-5.5); Red Cell Distribution Width 18.4 % (9.3-17.3); White Blood Count 5.9 T/CUMM (4-12)
[2018-04-16 05:52] LABS: Hemoglobin 9.8 GM/DL (14.0-18.0)
[2018-04-16] MEDS: PANTOPRAZOLE 40 MG TABLET PO SCH ×2 (06:17→18:32)
[2018-04-16 06:23] LABS: Platelet Estimate Normal; Polychromasia Few
[2018-04-16] MEDS: FLUCONAZOLE 200 MG TABLET PO SCH (09:01)
[2018-04-16] MEDS: TAMSULOSIN 0.4 MG CAPSULE PO SCH (09:01)
[2018-04-16] MEDS: PRASUGREL 10 MG TABLET PO SCH (09:01)
[2018-04-16] MEDS: DILTIAZEM CD 240 MG CAPSULE PO SCH ×2 (09:02→20:47)
[2018-04-16] MEDS: ASPIRIN EC 81 MG TABLET PO SCH (09:02)
[2018-04-16] MEDS: POTASSIUM CHLORIDE 20 MEQ TABLET PO SCH (09:02)
[2018-04-16] MEDS: ASCORBIC ACID 500 MG TABLET PO SCH ×2 (09:02→20:46)
[2018-04-16] MEDS: CARBIDOPA/LEVODOPA CR 50-200 MG TABLET PO SCH ×3 (09:02→20:46)
[2018-04-16] MEDS: MAGNESIUM OXIDE 400 MG TABLET PO SCH (09:02)
[2018-04-16] MEDS: ALLOPURINOL 100 MG TABLET PO SCH ×2 (09:02→20:47)
[2018-04-16] MEDS: ONDANSETRON 4 MG/2 ML VIAL IV PRN ×2 (09:50→18:31)
[2018-04-16] MEDS: NYSTATIN CREAM 15 GM TUBE TOP SCH ×2 (10:34→20:50)
[2018-04-16] MEDS: ESCITALOPRAM 10 MG TABLET PO SCH (17:32)
[2018-04-16] MEDS: SIMVASTATIN 10 MG TABLET PO SCH (20:46)
[2018-04-16] MEDS: MIRTAZAPINE 30 MG TABLET PO SCH (20:47)
[2018-04-16] MEDS: POLYETHYLENE GLYCOL POWDER 17 GM PACK PO SCH (20:50)
[2018-04-17] MEDS: PANTOPRAZOLE 40 MG TABLET PO SCH ×2 (06:18→20:23)
[2018-04-17 06:45] LABS: Calcium 9.4 MG/DL (8.5-10.1); Osmolality,Calculated 283.3 MOS/KG (273-304); Potassium 4.8 MMOL/L (3.5-5.1)
[2018-04-17 06:53] LABS: Basophils % 0.7 % (0.0-0.8); Eosinophils # 0.1 10*3/uL (0.0-0.87); Hematocrit 36.6 VOL% (42.0-52.0); Hemoglobin 10.2 GM/DL (14.0-18.0); Immature Granulocytes % 0.3 %; Immature Granulocytes Absolute 0.02 #; Lymphocytes # 0.8 10*3/uL (1.4-4.0); Lymphocytes % 13.4 % (21.2-54.2); Mean Corpuscular HGB Conc 27.9 GM/DL (32-36); Mean Corpuscular Hemoglobin 23 PG (27-34); Mean Corpuscular Volume 84.1 FL (87-102); Mean Platelet Volume 10.5 FL (9.6-12.0); Monocytes # 0.5 10*3/uL (0.11-0.8); Monocytes % 7.5 % (1.7-12.7); Neutrophils # 4.6 10*3/uL (1.4-7.4); Neutrophils % 76.1 % (38.7-73.9); Platelet Count 251 T/CUMM (130-400); Red Blood Count 4.35 MC/CUMM (3.8-5.5); Red Cell Distribution Width 18.2 % (9.3-17.3); White Blood Count 6.1 T/CUMM (4-12)
[2018-04-17 06:59] LABS: Hypochromasia 1+
[2018-04-17 07:00] LABS: Microcytosis 1+; Polychromasia Slight
[2018-04-17 07:01] LABS: Ovalocytes Few; Platelet Estimate Normal
[2018-04-17] MEDS: ONDANSETRON 4 MG/2 ML VIAL IV PRN (09:27)
[2018-04-17] MEDS: ASPIRIN EC 81 MG TABLET PO SCH (09:29)
[2018-04-17] MEDS: ESCITALOPRAM 10 MG TABLET PO SCH (09:29)
[2018-04-17] MEDS: PRASUGREL 10 MG TABLET PO SCH (09:29)
[2018-04-17] MEDS: TAMSULOSIN 0.4 MG CAPSULE PO SCH (09:30)
[2018-04-17] MEDS: CARBIDOPA/LEVODOPA CR 50-200 MG TABLET PO SCH ×3 (09:30→21:33)
[2018-04-17] MEDS: ALLOPURINOL 100 MG TABLET PO SCH ×2 (09:30→21:37)
[2018-04-17] MEDS: FLUCONAZOLE 200 MG TABLET PO SCH (09:30)
[2018-04-17] MEDS: DILTIAZEM CD 240 MG CAPSULE PO SCH ×2 (09:30→21:33)
[2018-04-17] MEDS: MAGNESIUM OXIDE 400 MG TABLET PO SCH (09:30)
[2018-04-17] MEDS: ASCORBIC ACID 500 MG TABLET PO SCH ×2 (09:30→21:37)
[2018-04-17] MEDS: NYSTATIN CREAM 15 GM TUBE TOP SCH ×2 (09:31→21:36)
[2018-04-17] MEDS: MIRTAZAPINE 30 MG TABLET PO SCH (21:33)
[2018-04-17] MEDS: SIMVASTATIN 10 MG TABLET PO SCH (21:33)
[2018-04-17] MEDS: POLYETHYLENE GLYCOL POWDER 17 GM PACK PO SCH (21:36)
[2018-04-18 04:09] LABS: Basophils % 0.7 % (0.0-0.8); Eosinophils # 0.1 10*3/uL (0.0-0.87); Hemoglobin 9.9 GM/DL (14.0-18.0); Immature Granulocytes % 0.2 %; Immature Granulocytes Absolute 0.01 #; Lymphocytes # 0.9 10*3/uL (1.4-4.0); Lymphocytes % 15.3 % (21.2-54.2); Mean Corpuscular HGB Conc 27.6 GM/DL (32-36); Mean Corpuscular Hemoglobin 23 PG (27-34); Mean Corpuscular Volume 84.7 FL (87-102); Mean Platelet Volume 10.4 FL (9.6-12.0); Monocytes # 0.5 10*3/uL (0.11-0.8); Neutrophils # 4.5 10*3/uL (1.4-7.4); Neutrophils % 73.8 % (38.7-73.9); Platelet Count 247 T/CUMM (130-400); Red Blood Count 4.24 MC/CUMM (3.8-5.5); Red Cell Distribution Width 18.2 % (9.3-17.3)
[2018-04-18 04:15] LABS: Hematocrit 35.9 VOL% (42.0-52.0)
[2018-04-18 04:39] LABS: Calcium 9.5 MG/DL (8.5-10.1); Osmolality,Calculated 280.4 MOS/KG (273-304); Potassium 4.6 MMOL/L (3.5-5.1)
[2018-04-18 05:10] LABS: Hypochromasia Slight; Platelet Estimate Adequate; Polychromasia Few
[2018-04-18] MEDS: PANTOPRAZOLE 40 MG TABLET PO SCH (06:10)
[2018-04-18] MEDS: ONDANSETRON 4 MG/2 ML VIAL IV PRN (08:16)
[2018-04-18] MEDS: NYSTATIN CREAM 15 GM TUBE TOP SCH (08:18)
[2018-04-18] MEDS: DILTIAZEM CD 240 MG CAPSULE PO SCH (08:19)
[2018-04-18] MEDS: TAMSULOSIN 0.4 MG CAPSULE PO SCH (08:19)
[2018-04-18] MEDS: ASCORBIC ACID 500 MG TABLET PO SCH (08:19)
[2018-04-18] MEDS: PRASUGREL 10 MG TABLET PO SCH (08:19)
[2018-04-18] MEDS: CARBIDOPA/LEVODOPA CR 50-200 MG TABLET PO SCH (08:19)
[2018-04-18] MEDS: FLUCONAZOLE 200 MG TABLET PO SCH (08:19)
[2018-04-18] MEDS: MAGNESIUM OXIDE 400 MG TABLET PO SCH (08:19)
[2018-04-18] MEDS: ESCITALOPRAM 10 MG TABLET PO SCH (08:19)
[2018-04-18] MEDS: ALLOPURINOL 100 MG TABLET PO SCH (08:19)
[2018-04-18] MEDS: ASPIRIN EC 81 MG TABLET PO SCH (08:20)
[2018-04-18 12:18] VITALS: BP 132/63
== END 2018-04-18 12:35 | disposition swing bed (61) | DRG 194 ==
LOC: N.TELEN → OBSVTOIN 16:11 → SUATTDRO 16:11
PROVIDERS: ADMIT Internal Medicine; ATTEND Emergency Medicine

== ENCOUNTER 2018-06-20 11:52 | Inpatient (IN) ==
[2018-06-20] MEDS ORDERED: ASPIRIN 325 MG TABLET PO STA (12:17)
[2018-06-20] MEDS ORDERED: MORPHINE 4 MG/1 ML VIAL IV STA (12:17)
[2018-06-20] MEDS ORDERED: ONDANSETRON 4 MG/2 ML VIAL IV STA (12:17)
[2018-06-20] MEDS ORDERED: NITROGLYCERIN 2% OINT 1 INCH/GM PACK TOP STA (12:17)
[2018-06-20 12:32] LABS: Basophils % 0.3 % (0.0-0.8); Eosinophils # 0.2 10*3/uL (0.0-0.87); Hematocrit 33.5 VOL% (42.0-52.0); Hemoglobin 9.9 GM/DL (14.0-18.0); Immature Granulocytes % 0.4 %; Immature Granulocytes Absolute 0.04 #; Lymphocytes # 1.2 10*3/uL (1.4-4.0); Lymphocytes % 13.6 % (21.2-54.2); Mean Corpuscular HGB Conc 29.6 GM/DL (32-36); Mean Corpuscular Hemoglobin 23 PG (27-34); Mean Corpuscular Volume 78.1 FL (87-102); Mean Platelet Volume 10.7 FL (9.6-12.0); Monocytes # 0.6 10*3/uL (0.11-0.8); Monocytes % 6.7 % (1.7-12.7); NRBC # 0.02 10*3/uL; Neutrophils # 6.9 10*3/uL (1.4-7.4); Platelet Count 235 T/CUMM (130-400); Red Blood Count 4.29 MC/CUMM (3.8-5.5); Red Cell Distribution Width 16.6 % (9.3-17.3)
[2018-06-20 12:42] LABS: INR 0.9
[2018-06-20 12:52] LABS: Alanine Aminotransferase < 6 U/L (16-61); Albumin 3.1 G/DL (3.4-5.0); Alkaline Phosphatase 73 U/L (45-117); Aspartate Amino Transferase 11 U/L (0-37); Blood Urea Nitrogen 28 MG/DL (7-18); Calcium 9.3 MG/DL (8.5-10.1); Glucose 125 MG/DL (74-106); Osmolality,Calculated 281.7 MOS/KG (273-304); Potassium 4.5 MMOL/L (3.5-5.1); Sodium 138 MMOL/L (136-145)
[2018-06-20] MEDS ORDERED: FUROSEMIDE 40 MG/4 ML VIAL IV STA (13:17)
[2018-06-20] MEDS ORDERED: MECLIZINE 25 MG TABLET PO PRN (14:52)
[2018-06-20] MEDS ORDERED: NITROGLYCERIN SL 0.4 MG TABLET SL PRN (14:52)
[2018-06-20 16:05] LABS: Apearance,Urine CLEAR (Clear); Bilirubin,Urine Negative (Negative); Blood, Urine Negative (Negative); Glucose,Urine (UA) Negative (Negative); Hyaline Casts,Urine 12 /LPF (0-3); Ketones,Urine Negative (Negative); Nitrite,Urine Negative (Negative); Protein,Urine Negative; RBC,Urine 1 /HPF (0-4); Squamous Epithelial Cell,Urine Occasional /HPF (0-10); Urine Color Yellow (Yellow); Urine Specific Gravity 1.038 (1.001-1.035); Urine Urobilinogen < 2.0 EU/DL (0.2-1.0); WBC,Urine 5 /HPF (0-6)
[2018-06-20] MEDS: POTASSIUM CHLORIDE 20 MEQ TABLET PO SCH ×2 (17:55→20:40)
[2018-06-20] MEDS: cefTRIAXone 1,000 MG in SYRINGE 1 EACH IV SCH (17:55)
[2018-06-20] MEDS: ONDANSETRON 4 MG/2 ML VIAL IV PRN (18:57)
[2018-06-20] MEDS: SIMVASTATIN 10 MG TABLET PO SCH (20:40)
[2018-06-20] MEDS: ALLOPURINOL 100 MG TABLET PO SCH (20:40)
[2018-06-20] MEDS: PANTOPRAZOLE 40 MG TABLET PO SCH (20:40)
[2018-06-20] MEDS: DILTIAZEM CD 240 MG CAPSULE PO SCH (20:40)
[2018-06-20] MEDS: METOPROLOL TARTRATE 25 MG TABLET PO SCH (20:40)
[2018-06-20] MEDS: FAMOTIDINE 20 MG TABLET PO SCH (20:40)
[2018-06-20] MEDS: CARBIDOPA/LEVODOPA CR 50-200 MG TABLET PO SCH (22:30)
[2018-06-21] MEDS: CARBIDOPA/LEVODOPA CR 50-200 MG TABLET PO SCH ×4 (00:16→22:23)
[2018-06-21] MEDS: ONDANSETRON 4 MG/2 ML VIAL IV PRN (03:28)
[2018-06-21 06:01] LABS: Basophils % 0.2 % (0.0-0.8); Eosinophils # 0.1 10*3/uL (0.0-0.87); Eosinophils % 1.3 % (0.00-10.9); Hematocrit 29.9 VOL% (42.0-52.0); Hemoglobin 8.8 GM/DL (14.0-18.0); Immature Granulocytes % 0.7 %; Immature Granulocytes Absolute 0.06 #; Lymphocytes # 0.9 10*3/uL (1.4-4.0); Lymphocytes % 9.6 % (21.2-54.2); Mean Corpuscular HGB Conc 29.4 GM/DL (32-36); Mean Corpuscular Hemoglobin 23 PG (27-34); Mean Corpuscular Volume 78.3 FL (87-102); Mean Platelet Volume 11.2 FL (9.6-12.0); Monocytes # 0.6 10*3/uL (0.11-0.8); Monocytes % 6.7 % (1.7-12.7); Neutrophils # 7.3 10*3/uL (1.4-7.4); Neutrophils % 81.5 % (38.7-73.9); Platelet Count 223 T/CUMM (130-400); Red Blood Count 3.82 MC/CUMM (3.8-5.5); White Blood Count 8.9 T/CUMM (4-12)
[2018-06-21 06:03] LABS: Calcium 9.1 MG/DL (8.5-10.1); Osmolality,Calculated 283.7 MOS/KG (273-304); Potassium 5.1 MMOL/L (3.5-5.1)
[2018-06-21] MEDS: METOPROLOL TARTRATE 25 MG TABLET PO SCH ×2 (10:00→22:23)
[2018-06-21] MEDS: ASPIRIN EC 81 MG TABLET PO SCH (10:01)
[2018-06-21] MEDS: POTASSIUM CHLORIDE 20 MEQ TABLET PO SCH ×4 (10:01→22:23)
[2018-06-21] MEDS: ESCITALOPRAM 10 MG TABLET PO SCH (10:01)
[2018-06-21] MEDS: MAGNESIUM OXIDE 400 MG TABLET PO SCH (10:01)
[2018-06-21] MEDS: FAMOTIDINE 20 MG TABLET PO SCH ×2 (10:01→22:24)
[2018-06-21] MEDS: CLOPIDOGREL 75 MG TABLET PO SCH (10:02)
[2018-06-21] MEDS: DILTIAZEM CD 240 MG CAPSULE PO SCH ×2 (10:02→22:22)
[2018-06-21] MEDS: FOLIC ACID 1 MG TABLET PO SCH (10:02)
[2018-06-21] MEDS: ALLOPURINOL 100 MG TABLET PO SCH ×2 (10:03→22:24)
[2018-06-21] MEDS: TAMSULOSIN 0.4 MG CAPSULE PO SCH (10:03)
[2018-06-21] MEDS: PANTOPRAZOLE 40 MG TABLET PO SCH ×2 (10:04→22:22)
[2018-06-21] MEDS: FUROSEMIDE 40 MG/4 ML VIAL IV SCH ×2 (10:17→18:24)
[2018-06-21] MEDS: DESITIN 4OZ/NYSTATIN 15 GRAM MIXTURE PASTE TOP SCH ×2 (14:43→22:21)
[2018-06-21] MEDS: cefTRIAXone 1,000 MG in SYRINGE 1 EACH IV SCH (18:24)
[2018-06-21] MEDS: SIMVASTATIN 10 MG TABLET PO SCH (22:25)
[2018-06-22] MEDS: ONDANSETRON 4 MG/2 ML VIAL IV PRN ×2 (01:38→08:50)
[2018-06-22 05:20] LABS: Basophils % 0.2 % (0.0-0.8); Eosinophils # 0.1 10*3/uL (0.0-0.87); Eosinophils % 1.3 % (0.00-10.9); Hematocrit 28.6 VOL% (42.0-52.0); Hemoglobin 8.4 GM/DL (14.0-18.0); Immature Granulocytes % 0.6 %; Immature Granulocytes Absolute 0.05 #; Lymphocytes # 1.1 10*3/uL (1.4-4.0); Lymphocytes % 13.1 % (21.2-54.2); Mean Corpuscular HGB Conc 29.4 GM/DL (32-36); Mean Corpuscular Hemoglobin 23 PG (27-34); Mean Corpuscular Volume 78.6 FL (87-102); Mean Platelet Volume 10.9 FL (9.6-12.0); Monocytes # 0.7 10*3/uL (0.11-0.8); Monocytes % 7.6 % (1.7-12.7); Neutrophils # 6.7 10*3/uL (1.4-7.4); Neutrophils % 77.2 % (38.7-73.9); Platelet Count 219 T/CUMM (130-400); Red Blood Count 3.64 MC/CUMM (3.8-5.5); Red Cell Distribution Width 16.9 % (9.3-17.3); White Blood Count 8.7 T/CUMM (4-12)
[2018-06-22 05:43] LABS: Calcium 8.8 MG/DL (8.5-10.1); Osmolality,Calculated 282.7 MOS/KG (273-304); Potassium 4.4 MMOL/L (3.5-5.1)
[2018-06-22] MEDS: FUROSEMIDE 40 MG/4 ML VIAL IV SCH ×2 (08:52→15:38)
[2018-06-22] MEDS ORDERED: LIDOCAINE 2% 5 ML VIAL ONE (09:00)
[2018-06-22] MEDS ORDERED: ETOMIDATE 20 MG/10 ML VIAL IV ONE (09:00)
[2018-06-22] MEDS ORDERED: PROPOFOL 200 MG/20 ML VIAL IV ONE (09:00)
[2018-06-22] MEDS ORDERED: OMEPRAZOLE 20 MG PO SCH (09:30)
[2018-06-22] MEDS: CLOPIDOGREL 75 MG TABLET PO SCH (12:50)
[2018-06-22] MEDS: MAGNESIUM OXIDE 400 MG TABLET PO SCH (12:50)
[2018-06-22] MEDS: POTASSIUM CHLORIDE 20 MEQ TABLET PO SCH ×5 (12:50→23:40)
[2018-06-22] MEDS: FOLIC ACID 1 MG TABLET PO SCH (12:50)
[2018-06-22] MEDS: CARBIDOPA/LEVODOPA CR 50-200 MG TABLET PO SCH ×3 (12:50→22:19)
[2018-06-22] MEDS: ASPIRIN EC 81 MG TABLET PO SCH (12:50)
[2018-06-22] MEDS: TAMSULOSIN 0.4 MG CAPSULE PO SCH (12:50)
[2018-06-22] MEDS: ALLOPURINOL 100 MG TABLET PO SCH ×2 (12:51→22:18)
[2018-06-22] MEDS: DILTIAZEM CD 240 MG CAPSULE PO SCH ×2 (12:51→22:18)
[2018-06-22] MEDS: METOPROLOL TARTRATE 25 MG TABLET PO SCH (12:51)
[2018-06-22] MEDS: FAMOTIDINE 20 MG TABLET PO SCH ×2 (12:51→22:20)
[2018-06-22] MEDS: ESCITALOPRAM 10 MG TABLET PO SCH (12:51)
[2018-06-22] MEDS: DESITIN 4OZ/NYSTATIN 15 GRAM MIXTURE PASTE TOP SCH ×2 (12:52→22:27)
[2018-06-22] MEDS: PANTOPRAZOLE 40 MG TABLET PO SCH (12:53)
[2018-06-22] MEDS: cefTRIAXone 1,000 MG in SYRINGE 1 EACH IV SCH (15:34)
[2018-06-22] MEDS: PANTOPRAZOLE 40 MG VIAL IV SCH (15:40)
[2018-06-22] MEDS: SUCRALFATE 1 GM/10 ML UDCUP PO SCH ×3 (16:40→23:40)
[2018-06-22] MEDS: clonazePAM 0.5 MG TABLET PO PRN ×2 (17:58→18:45)
[2018-06-22] MEDS: SIMVASTATIN 10 MG TABLET PO SCH (22:19)
[2018-06-22] MEDS: METOPROLOL TARTRATE 50 MG TABLET PO SCH (22:19)
[2018-06-23] MEDS: PANTOPRAZOLE 40 MG VIAL IV SCH ×2 (04:43→09:50)
[2018-06-23 05:14] LABS: Basophils % 0.3 % (0.0-0.8); Eosinophils # 0.1 10*3/uL (0.0-0.87); Eosinophils % 1.9 % (0.00-10.9); Hematocrit 27.4 VOL% (42.0-52.0); Hemoglobin 8.1 GM/DL (14.0-18.0); Immature Granulocytes % 0.7 %; Immature Granulocytes Absolute 0.05 #; Lymphocytes # 1.2 10*3/uL (1.4-4.0); Lymphocytes % 16.3 % (21.2-54.2); Mean Corpuscular HGB Conc 29.6 GM/DL (32-36); Mean Corpuscular Hemoglobin 23 PG (27-34); Mean Corpuscular Volume 78.7 FL (87-102); Mean Platelet Volume 11.1 FL (9.6-12.0); Monocytes # 0.6 10*3/uL (0.11-0.8); Monocytes % 7.8 % (1.7-12.7); Neutrophils # 5.3 10*3/uL (1.4-7.4); Platelet Count 216 T/CUMM (130-400); Red Blood Count 3.48 MC/CUMM (3.8-5.5); Red Cell Distribution Width 16.8 % (9.3-17.3); White Blood Count 7.3 T/CUMM (4-12)
[2018-06-23 05:36] LABS: Calcium 8.6 MG/DL (8.5-10.1); Osmolality,Calculated 283.5 MOS/KG (273-304); Potassium 4.3 MMOL/L (3.5-5.1)
[2018-06-23] MEDS ORDERED: MECLIZINE 25 MG TABLET PO PRN (09:28)
[2018-06-23] MEDS: SUCRALFATE 1 GM/10 ML UDCUP PO SCH ×4 (09:35→22:38)
[2018-06-23] MEDS: TAMSULOSIN 0.4 MG CAPSULE PO SCH (09:49)
[2018-06-23] MEDS: CLOPIDOGREL 75 MG TABLET PO SCH (09:49)
[2018-06-23] MEDS: FAMOTIDINE 20 MG TABLET PO SCH ×2 (09:49→22:29)
[2018-06-23] MEDS: FOLIC ACID 1 MG TABLET PO SCH (09:49)
[2018-06-23] MEDS: ASPIRIN EC 81 MG TABLET PO SCH (09:49)
[2018-06-23] MEDS: FUROSEMIDE 40 MG/4 ML VIAL IV SCH ×2 (09:49→16:32)
[2018-06-23] MEDS: MAGNESIUM OXIDE 400 MG TABLET PO SCH (09:49)
[2018-06-23] MEDS: ALLOPURINOL 100 MG TABLET PO SCH ×2 (09:50→22:29)
[2018-06-23] MEDS: POTASSIUM CHLORIDE 20 MEQ TABLET PO SCH ×4 (09:50→22:33)
[2018-06-23] MEDS: CYANOCOBALAMIN 1000 MCG/1 ML VIAL IM SCH (09:50)
[2018-06-23] MEDS: DESITIN 4OZ/NYSTATIN 15 GRAM MIXTURE PASTE TOP SCH ×2 (09:51→22:25)
[2018-06-23] MEDS: DILTIAZEM CD 240 MG CAPSULE PO SCH ×2 (09:52→22:29)
[2018-06-23] MEDS: METOPROLOL TARTRATE 50 MG TABLET PO SCH (09:52)
[2018-06-23] MEDS: ESCITALOPRAM 10 MG TABLET PO SCH (10:36)
[2018-06-23] MEDS: CARBIDOPA/LEVODOPA CR 50-200 MG TABLET PO SCH ×3 (10:36→22:28)
[2018-06-23] MEDS ORDERED: POLYETHYLENE GLYCOL POWDER 17 GM PACK PO PRN (11:40)
[2018-06-23] MEDS: cefTRIAXone 1,000 MG in SYRINGE 1 EACH IV SCH (16:32)
[2018-06-23] MEDS ORDERED: CARBIDOPA/LEVODOPA CR 50-200 MG TABLET PO SCH (21:00)
[2018-06-23] MEDS: busPIRone 5 MG TABLET PO SCH (22:27)
[2018-06-23] MEDS: SIMVASTATIN 10 MG TABLET PO SCH (22:28)
[2018-06-23] MEDS: URSODIOL 300 MG CAPSULE PO SCH (22:28)
[2018-06-24] MEDS: METOPROLOL TARTRATE 50 MG TABLET PO SCH ×3 (00:34→21:41)
[2018-06-24] MEDS: PANTOPRAZOLE 40 MG VIAL IV SCH ×3 (00:34→21:42)
[2018-06-24] MEDS: ONDANSETRON 4 MG/2 ML VIAL IV PRN ×4 (01:47→15:42)
[2018-06-24] MEDS: ACETAMINOPHEN 325 MG TABLET PO PRN ×2 (02:13→13:14)
[2018-06-24] MEDS: FOLIC ACID 1 MG TABLET PO SCH (09:41)
[2018-06-24] MEDS: MAGNESIUM OXIDE 400 MG TABLET PO SCH (09:42)
[2018-06-24] MEDS: ASPIRIN EC 81 MG TABLET PO SCH (09:42)
[2018-06-24] MEDS: URSODIOL 300 MG CAPSULE PO SCH ×2 (09:42→21:40)
[2018-06-24] MEDS: TAMSULOSIN 0.4 MG CAPSULE PO SCH (09:42)
[2018-06-24] MEDS: CLOPIDOGREL 75 MG TABLET PO SCH (09:43)
[2018-06-24] MEDS: ESCITALOPRAM 10 MG TABLET PO SCH (09:43)
[2018-06-24] MEDS: POTASSIUM CHLORIDE 20 MEQ TABLET PO SCH ×4 (09:43→21:40)
[2018-06-24] MEDS: CARBIDOPA/LEVODOPA CR 50-200 MG TABLET PO SCH ×3 (09:43→21:41)
[2018-06-24] MEDS: DILTIAZEM CD 240 MG CAPSULE PO SCH ×2 (09:44→21:39)
[2018-06-24] MEDS: ALLOPURINOL 100 MG TABLET PO SCH ×2 (09:49→21:41)
[2018-06-24] MEDS: busPIRone 5 MG TABLET PO SCH ×2 (09:49→21:42)
[2018-06-24] MEDS: FAMOTIDINE 20 MG TABLET PO SCH ×2 (09:49→21:41)
[2018-06-24] MEDS: FUROSEMIDE 40 MG/4 ML VIAL IV SCH ×2 (09:49→15:47)
[2018-06-24] MEDS: DESITIN 4OZ/NYSTATIN 15 GRAM MIXTURE PASTE TOP SCH ×2 (10:23→21:53)
[2018-06-24] MEDS: SUCRALFATE 1 GM/10 ML UDCUP PO SCH ×2 (10:37→11:39)
[2018-06-24] MEDS: ALPRAZolam 0.25 MG TABLET PO PRN (15:46)
[2018-06-24] MEDS: SUCRALFATE 1 GM TABLET PO SCH ×2 (15:47→21:39)
[2018-06-24] MEDS: cefTRIAXone 1,000 MG in SYRINGE 1 EACH IV SCH (15:52)
[2018-06-24] MEDS: MIRTAZAPINE 15 MG TABLET PO SCH (21:41)
[2018-06-24] MEDS: SIMVASTATIN 10 MG TABLET PO SCH (21:41)
[2018-06-25 05:00] LABS: Basophils % 0.4 % (0.0-0.8); Eosinophils # 0.2 10*3/uL (0.0-0.87); Eosinophils % 2.9 % (0.00-10.9); Hematocrit 24.4 VOL% (42.0-52.0); Hemoglobin 7.3 GM/DL (14.0-18.0); Immature Granulocytes % 0.4 %; Immature Granulocytes Absolute 0.02 #; Mean Corpuscular HGB Conc 29.9 GM/DL (32-36); Mean Corpuscular Hemoglobin 23 PG (27-34); Mean Corpuscular Volume 78.2 FL (87-102); Mean Platelet Volume 10.8 FL (9.6-12.0); Monocytes # 0.5 10*3/uL (0.11-0.8); Monocytes % 8.2 % (1.7-12.7); Neutrophils # 3.9 10*3/uL (1.4-7.4); Neutrophils % 70.1 % (38.7-73.9); Platelet Count 215 T/CUMM (130-400); Red Blood Count 3.12 MC/CUMM (3.8-5.5); Red Cell Distribution Width 16.8 % (9.3-17.3); White Blood Count 5.6 T/CUMM (4-12)
[2018-06-25 05:18] LABS: Calcium 8.6 MG/DL (8.5-10.1); Osmolality,Calculated 283.4 MOS/KG (273-304); Potassium 4.2 MMOL/L (3.5-5.1)
[2018-06-25] MEDS: DESITIN 4OZ/NYSTATIN 15 GRAM MIXTURE PASTE TOP SCH ×2 (09:23→23:30)
[2018-06-25] MEDS: busPIRone 5 MG TABLET PO SCH ×2 (09:41→22:37)
[2018-06-25] MEDS: URSODIOL 300 MG CAPSULE PO SCH ×2 (09:41→22:37)
[2018-06-25] MEDS: FOLIC ACID 1 MG TABLET PO SCH (09:41)
[2018-06-25] MEDS: ASPIRIN EC 81 MG TABLET PO SCH (09:41)
[2018-06-25] MEDS: TAMSULOSIN 0.4 MG CAPSULE PO SCH (09:41)
[2018-06-25] MEDS: SUCRALFATE 1 GM TABLET PO SCH ×4 (09:41→22:38)
[2018-06-25] MEDS: DILTIAZEM CD 240 MG CAPSULE PO SCH ×2 (09:41→22:37)
[2018-06-25] MEDS: METOPROLOL TARTRATE 50 MG TABLET PO SCH ×2 (09:41→22:39)
[2018-06-25] MEDS: CLOPIDOGREL 75 MG TABLET PO SCH (09:42)
[2018-06-25] MEDS: FAMOTIDINE 20 MG TABLET PO SCH ×2 (09:42→22:39)
[2018-06-25] MEDS: POTASSIUM CHLORIDE 20 MEQ TABLET PO SCH ×4 (09:42→22:38)
[2018-06-25] MEDS: CARBIDOPA/LEVODOPA CR 50-200 MG TABLET PO SCH ×3 (09:42→22:40)
[2018-06-25] MEDS: ESCITALOPRAM 10 MG TABLET PO SCH (09:42)
[2018-06-25] MEDS: MAGNESIUM OXIDE 400 MG TABLET PO SCH (09:42)
[2018-06-25] MEDS: ALLOPURINOL 100 MG TABLET PO SCH ×2 (09:43→22:38)
[2018-06-25] MEDS: ALPRAZolam 0.25 MG TABLET PO PRN (09:43)
[2018-06-25] MEDS ORDERED: SODIUM CHLORIDE 0.9% 1,000 ML IV PRN (09:58)
[2018-06-25] MEDS: PANTOPRAZOLE 40 MG VIAL IV SCH ×2 (10:12→22:40)
[2018-06-25] MEDS: FUROSEMIDE 40 MG/4 ML VIAL IV SCH ×2 (10:16→16:03)
[2018-06-25] MEDS ORDERED: ALUMINUM/MAGNES/SIMETH MAX STR 30 ML UDCUP PO PRN (14:42)
[2018-06-25] MEDS: cefTRIAXone 1,000 MG in SYRINGE 1 EACH IV SCH (16:07)
[2018-06-25] MEDS: ONDANSETRON 4 MG/2 ML VIAL IV PRN ×2 (16:14→23:40)
[2018-06-25 20:58] LABS: Hematocrit 28.3 VOL% (42.0-52.0); Hemoglobin 8.6 GM/DL (14.0-18.0)
[2018-06-25] MEDS: MIRTAZAPINE 15 MG TABLET PO SCH (22:39)
[2018-06-25] MEDS: SIMVASTATIN 10 MG TABLET PO SCH (22:39)
[2018-06-26 04:53] LABS: Basophils % 0.4 % (0.0-0.8); Eosinophils # 0.2 10*3/uL (0.0-0.87); Eosinophils % 2.8 % (0.00-10.9); Hematocrit 30.2 VOL% (42.0-52.0); Hemoglobin 9.2 GM/DL (14.0-18.0); Immature Granulocytes % 1.2 %; Immature Granulocytes Absolute 0.08 #; Lymphocytes # 1.1 10*3/uL (1.4-4.0); Lymphocytes % 16.6 % (21.2-54.2); Mean Corpuscular HGB Conc 30.5 GM/DL (32-36); Mean Corpuscular Hemoglobin 24 PG (27-34); Mean Corpuscular Volume 79.3 FL (87-102); Mean Platelet Volume 10.6 FL (9.6-12.0); Monocytes # 0.5 10*3/uL (0.11-0.8); Monocytes % 7.2 % (1.7-12.7); Neutrophils # 4.9 10*3/uL (1.4-7.4); Neutrophils % 71.8 % (38.7-73.9); Platelet Count 236 T/CUMM (130-400); Red Blood Count 3.81 MC/CUMM (3.8-5.5); Red Cell Distribution Width 16.2 % (9.3-17.3); White Blood Count 6.8 T/CUMM (4-12)
[2018-06-26 05:12] LABS: Calcium 8.6 MG/DL (8.5-10.1); Osmolality,Calculated 281.5 MOS/KG (273-304); Potassium 4.2 MMOL/L (3.5-5.1)
[2018-06-26] MEDS: DESITIN 4OZ/NYSTATIN 15 GRAM MIXTURE PASTE TOP SCH ×2 (07:50→21:00)
[2018-06-26] MEDS: MAGNESIUM OXIDE 400 MG TABLET PO SCH (08:35)
[2018-06-26] MEDS: DILTIAZEM CD 240 MG CAPSULE PO SCH ×2 (08:35→21:55)
[2018-06-26] MEDS: TAMSULOSIN 0.4 MG CAPSULE PO SCH (08:35)
[2018-06-26] MEDS: ASPIRIN EC 81 MG TABLET PO SCH (08:35)
[2018-06-26] MEDS: FAMOTIDINE 20 MG TABLET PO SCH ×2 (08:36→21:57)
[2018-06-26] MEDS: CARBIDOPA/LEVODOPA CR 50-200 MG TABLET PO SCH ×3 (08:36→21:57)
[2018-06-26] MEDS: POTASSIUM CHLORIDE 20 MEQ TABLET PO SCH ×4 (08:36→21:57)
[2018-06-26] MEDS: URSODIOL 300 MG CAPSULE PO SCH ×2 (08:36→21:55)
[2018-06-26] MEDS: busPIRone 5 MG TABLET PO SCH ×2 (08:36→21:55)
[2018-06-26] MEDS: ALLOPURINOL 100 MG TABLET PO SCH ×2 (08:36→21:56)
[2018-06-26] MEDS: METOPROLOL TARTRATE 50 MG TABLET PO SCH ×2 (08:36→21:57)
[2018-06-26] MEDS: FUROSEMIDE 40 MG/4 ML VIAL IV SCH ×2 (08:36→16:01)
[2018-06-26] MEDS: CLOPIDOGREL 75 MG TABLET PO SCH (08:36)
[2018-06-26] MEDS: FOLIC ACID 1 MG TABLET PO SCH (08:36)
[2018-06-26] MEDS: ESCITALOPRAM 10 MG TABLET PO SCH (08:36)
[2018-06-26] MEDS: SUCRALFATE 1 GM TABLET PO SCH ×4 (08:36→21:57)
[2018-06-26] MEDS: PANTOPRAZOLE 40 MG VIAL IV SCH ×2 (08:37→21:58)
[2018-06-26] MEDS: ALPRAZolam 0.25 MG TABLET PO PRN ×2 (10:15→17:38)
[2018-06-26] MEDS: ACETAMINOPHEN 325 MG TABLET PO PRN (13:35)
[2018-06-26] MEDS: cefTRIAXone 1,000 MG in SYRINGE 1 EACH IV SCH (16:01)
[2018-06-26] MEDS: ONDANSETRON 4 MG/2 ML VIAL IV PRN ×2 (16:01→22:35)
[2018-06-26] MEDS: MIRTAZAPINE 15 MG TABLET PO SCH (21:56)
[2018-06-26] MEDS: SIMVASTATIN 10 MG TABLET PO SCH (21:57)
[2018-06-27] MEDS: ALPRAZolam 0.25 MG TABLET PO PRN ×2 (00:48→16:48)
[2018-06-27] MEDS: ACETAMINOPHEN 325 MG TABLET PO PRN ×2 (04:38→16:39)
[2018-06-27 04:53] LABS: Basophils % 0.5 % (0.0-0.8); Eosinophils # 0.2 10*3/uL (0.0-0.87); Hematocrit 30.4 VOL% (42.0-52.0); Hemoglobin 9.4 GM/DL (14.0-18.0); Immature Granulocytes % 0.3 %; Immature Granulocytes Absolute 0.02 #; Lymphocytes # 1.2 10*3/uL (1.4-4.0); Lymphocytes % 18.5 % (21.2-54.2); Mean Corpuscular HGB Conc 30.9 GM/DL (32-36); Mean Corpuscular Hemoglobin 24 PG (27-34); Mean Platelet Volume 11.5 FL (9.6-12.0); Monocytes # 0.6 10*3/uL (0.11-0.8); Monocytes % 8.7 % (1.7-12.7); Neutrophils # 4.4 10*3/uL (1.4-7.4); Platelet Count 208 T/CUMM (130-400); Red Blood Count 3.85 MC/CUMM (3.8-5.5); Red Cell Distribution Width 16.4 % (9.3-17.3); White Blood Count 6.4 T/CUMM (4-12)
[2018-06-27 05:25] LABS: Calcium 8.8 MG/DL (8.5-10.1); Osmolality,Calculated 282.4 MOS/KG (273-304); Potassium 4.4 MMOL/L (3.5-5.1)
[2018-06-27] MEDS: METOPROLOL TARTRATE 50 MG TABLET PO SCH ×2 (09:11→21:13)
[2018-06-27] MEDS: FOLIC ACID 1 MG TABLET PO SCH (09:12)
[2018-06-27] MEDS: URSODIOL 300 MG CAPSULE PO SCH ×2 (09:12→21:11)
[2018-06-27] MEDS: SUCRALFATE 1 GM TABLET PO SCH ×4 (09:12→21:11)
[2018-06-27] MEDS: FAMOTIDINE 20 MG TABLET PO SCH ×2 (09:13→21:13)
[2018-06-27] MEDS: busPIRone 5 MG TABLET PO SCH ×2 (09:13→21:11)
[2018-06-27] MEDS: DILTIAZEM CD 240 MG CAPSULE PO SCH ×2 (09:14→21:13)
[2018-06-27] MEDS: CARBIDOPA/LEVODOPA CR 50-200 MG TABLET PO SCH ×3 (09:14→21:12)
[2018-06-27] MEDS: TAMSULOSIN 0.4 MG CAPSULE PO SCH (09:15)
[2018-06-27] MEDS: ALLOPURINOL 100 MG TABLET PO SCH ×2 (09:15→21:13)
[2018-06-27] MEDS: POTASSIUM CHLORIDE 20 MEQ TABLET PO SCH ×4 (09:16→21:12)
[2018-06-27] MEDS: MAGNESIUM OXIDE 400 MG TABLET PO SCH (09:16)
[2018-06-27] MEDS: ESCITALOPRAM 10 MG TABLET PO SCH (09:17)
[2018-06-27] MEDS: PANTOPRAZOLE 40 MG VIAL IV SCH ×2 (09:21→21:13)
[2018-06-27] MEDS: FUROSEMIDE 40 MG/4 ML VIAL IV SCH (09:23)
[2018-06-27] MEDS: ASPIRIN EC 81 MG TABLET PO SCH (10:18)
[2018-06-27] MEDS: CLOPIDOGREL 75 MG TABLET PO SCH (10:18)
[2018-06-27] MEDS: DESITIN 4OZ/NYSTATIN 15 GRAM MIXTURE PASTE TOP SCH ×2 (11:41→21:14)
[2018-06-27] MEDS: FUROSEMIDE 40 MG TABLET PO SCH (15:59)
[2018-06-27] MEDS: cefTRIAXone 1,000 MG in SYRINGE 1 EACH IV SCH (15:59)
[2018-06-27] MEDS: SIMVASTATIN 10 MG TABLET PO SCH (21:11)
[2018-06-27] MEDS: MIRTAZAPINE 15 MG TABLET PO SCH (21:12)
[2018-06-27] MEDS: ONDANSETRON 4 MG/2 ML VIAL IV PRN (21:14)
[2018-06-28] MEDS: ALPRAZolam 0.25 MG TABLET PO PRN (00:09)
[2018-06-28 04:26] LABS: Calcium 8.4 MG/DL (8.5-10.1); Osmolality,Calculated 283.4 MOS/KG (273-304); Potassium 4.5 MMOL/L (3.5-5.1)
[2018-06-28 04:32] LABS: Basophils % 0.4 % (0.0-0.8); Eosinophils # 0.2 10*3/uL (0.0-0.87); Eosinophils % 4.1 % (0.00-10.9); Hematocrit 29.6 VOL% (42.0-52.0); Hemoglobin 8.8 GM/DL (14.0-18.0); Immature Granulocytes % 0.2 %; Immature Granulocytes Absolute 0.01 #; Lymphocytes # 1.2 10*3/uL (1.4-4.0); Mean Corpuscular HGB Conc 29.7 GM/DL (32-36); Mean Corpuscular Hemoglobin 24 PG (27-34); Mean Corpuscular Volume 79.8 FL (87-102); Mean Platelet Volume 10.7 FL (9.6-12.0); Monocytes # 0.4 10*3/uL (0.11-0.8); Monocytes % 7.4 % (1.7-12.7); Neutrophils # 3.6 10*3/uL (1.4-7.4); Neutrophils % 65.9 % (38.7-73.9); Platelet Count 202 T/CUMM (130-400); Red Blood Count 3.71 MC/CUMM (3.8-5.5); Red Cell Distribution Width 16.6 % (9.3-17.3); White Blood Count 5.4 T/CUMM (4-12)
[2018-06-28] MEDS: ONDANSETRON 4 MG/2 ML VIAL IV PRN ×4 (04:44→21:43)
[2018-06-28] MEDS ORDERED: cefOXitin 2,000 MG in SYRINGE 1 EACH IV ONE (07:00)
[2018-06-28] MEDS: URSODIOL 300 MG CAPSULE PO SCH ×2 (09:01→21:42)
[2018-06-28] MEDS: SUCRALFATE 1 GM TABLET PO SCH ×4 (09:01→22:11)
[2018-06-28] MEDS: ASPIRIN EC 81 MG TABLET PO SCH (09:02)
[2018-06-28] MEDS: DILTIAZEM CD 240 MG CAPSULE PO SCH ×2 (09:02→21:41)
[2018-06-28] MEDS: MAGNESIUM OXIDE 400 MG TABLET PO SCH (09:03)
[2018-06-28] MEDS: TAMSULOSIN 0.4 MG CAPSULE PO SCH (09:03)
[2018-06-28] MEDS: FOLIC ACID 1 MG TABLET PO SCH (09:03)
[2018-06-28] MEDS: CLOPIDOGREL 75 MG TABLET PO SCH (09:04)
[2018-06-28] MEDS: METOPROLOL TARTRATE 50 MG TABLET PO SCH ×2 (09:04→21:41)
[2018-06-28] MEDS: ALLOPURINOL 100 MG TABLET PO SCH ×2 (09:05→21:42)
[2018-06-28] MEDS: FAMOTIDINE 20 MG TABLET PO SCH ×2 (09:05→21:41)
[2018-06-28] MEDS: FUROSEMIDE 40 MG TABLET PO SCH ×2 (09:06→22:11)
[2018-06-28] MEDS: POTASSIUM CHLORIDE 20 MEQ TABLET PO SCH ×4 (09:07→21:41)
[2018-06-28] MEDS: PANTOPRAZOLE 40 MG VIAL IV SCH ×2 (09:11→21:42)
[2018-06-28] MEDS: CARBIDOPA/LEVODOPA CR 50-200 MG TABLET PO SCH ×3 (09:14→22:11)
[2018-06-28] MEDS: busPIRone 5 MG TABLET PO SCH ×2 (09:33→21:41)
[2018-06-28] MEDS: DESITIN 4OZ/NYSTATIN 15 GRAM MIXTURE PASTE TOP SCH ×2 (09:35→21:42)
[2018-06-28] MEDS ORDERED: TISSUE ADHESIVE 1 EACH APPLICATOR TOP ONE (11:50)
[2018-06-28] MEDS ORDERED: LIDOCAINE 1%/EPI INJ 20 ML VIAL ONE (11:50)
[2018-06-28] MEDS: LACTATED RINGERS 1,000 ML IV SCH (12:44)
[2018-06-28] MEDS ORDERED: SEVOFLURANE 1 UNIT/15 MINUTE INH ONE (14:36)
[2018-06-28] MEDS ORDERED: fentaNYL 100 MCG/2 ML VIAL ONE (14:36)
[2018-06-28] MEDS ORDERED: PROPOFOL 200 MG/20 ML VIAL IV ONE (14:36)
[2018-06-28] MEDS ORDERED: GLYCOPYRROLATE 0.4 MG/2 ML VIAL ONE ×2 (14:37)
[2018-06-28] MEDS ORDERED: ETOMIDATE 40 MG/20 ML VIAL IV ONE (14:37)
[2018-06-28] MEDS ORDERED: NEOSTIGMINE 10 MG/10 ML VIAL ONE (14:37)
[2018-06-28] MEDS ORDERED: PHENYLEPHRINE 1 MG/10 ML SYRINGE IV ONE (14:37)
[2018-06-28] MEDS ORDERED: ePHEDrine 50 MG/ML AMP ONE (14:37)
[2018-06-28] MEDS ORDERED: NEOSTIGMINE 10 MG/10 ML VIAL IV ONE (14:38)
[2018-06-28] MEDS ORDERED: ROCURONIUM 100 MG/10 ML VIAL IV ONE (14:38)
[2018-06-28] MEDS ORDERED: HYDROmorphone 2 MG/1 ML VIAL IV PRN (16:52)
[2018-06-28 17:29] LABS: Basophils % 0.4 % (0.0-0.8); Eosinophils # 0.1 10*3/uL (0.0-0.87); Hematocrit 28.9 VOL% (42.0-52.0); Hemoglobin 8.5 GM/DL (14.0-18.0); Immature Granulocytes % 0.2 %; Immature Granulocytes Absolute 0.01 #; Lymphocytes # 1.2 10*3/uL (1.4-4.0); Lymphocytes % 21.4 % (21.2-54.2); Mean Corpuscular HGB Conc 29.4 GM/DL (32-36); Mean Corpuscular Hemoglobin 24 PG (27-34); Mean Corpuscular Volume 82.3 FL (87-102); Mean Platelet Volume 10.5 FL (9.6-12.0); Monocytes # 0.4 10*3/uL (0.11-0.8); Monocytes % 7.2 % (1.7-12.7); Neutrophils # 3.7 10*3/uL (1.4-7.4); Neutrophils % 68.8 % (38.7-73.9); Platelet Count 191 T/CUMM (130-400); Red Blood Count 3.51 MC/CUMM (3.8-5.5); Red Cell Distribution Width 16.8 % (9.3-17.3); White Blood Count 5.4 T/CUMM (4-12)
[2018-06-28 17:52] LABS: Alanine Aminotransferase < 6 U/L (16-61); Albumin 2.6 G/DL (3.4-5.0); Alkaline Phosphatase 66 U/L (45-117); Aspartate Amino Transferase 6 U/L (0-37); Blood Urea Nitrogen 27 MG/DL (7-18); Calcium 8.9 MG/DL (8.5-10.1); Glucose 108 MG/DL (74-106); Osmolality,Calculated 288.1 MOS/KG (273-304); Potassium 5.1 MMOL/L (3.5-5.1); Sodium 142 MMOL/L (136-145); Total Protein 5.7 G/DL (6.4-8.3)
[2018-06-28] MEDS: ACETAMINOPHEN 325 MG TABLET PO PRN (18:39)
[2018-06-28] MEDS: SIMVASTATIN 10 MG TABLET PO SCH (21:41)
[2018-06-28] MEDS: MIRTAZAPINE 15 MG TABLET PO SCH (21:42)
[2018-06-28] MEDS: cefTRIAXone 1,000 MG in SYRINGE 1 EACH IV SCH (22:14)
[2018-06-29 05:26] LABS: Basophils % 0.4 % (0.0-0.8); Eosinophils # 0.2 10*3/uL (0.0-0.87); Eosinophils % 4.1 % (0.00-10.9); Hematocrit 28.4 VOL% (42.0-52.0); Hemoglobin 8.4 GM/DL (14.0-18.0); Immature Granulocytes % 0.2 %; Immature Granulocytes Absolute 0.01 #; Mean Corpuscular HGB Conc 29.6 GM/DL (32-36); Mean Corpuscular Hemoglobin 24 PG (27-34); Mean Corpuscular Volume 80.9 FL (87-102); Monocytes # 0.4 10*3/uL (0.11-0.8); Monocytes % 8.4 % (1.7-12.7); Neutrophils # 3.2 10*3/uL (1.4-7.4); Neutrophils % 65.9 % (38.7-73.9); Platelet Count 184 T/CUMM (130-400); Red Blood Count 3.51 MC/CUMM (3.8-5.5); Red Cell Distribution Width 17.1 % (9.3-17.3); White Blood Count 4.9 T/CUMM (4-12)
[2018-06-29 05:38] LABS: Calcium 8.6 MG/DL (8.5-10.1); Osmolality,Calculated 281.5 MOS/KG (273-304); Potassium 4.7 MMOL/L (3.5-5.1)
[2018-06-29 05:40] LABS: Alanine Aminotransferase < 6 U/L (16-61); Albumin 2.6 G/DL (3.4-5.0); Alkaline Phosphatase 65 U/L (45-117); Aspartate Amino Transferase 7 U/L (0-37); Blood Urea Nitrogen 26 MG/DL (7-18); Calcium 8.5 MG/DL (8.5-10.1); Glucose 96 MG/DL (74-106); Osmolality,Calculated 283.4 MOS/KG (273-304); Potassium 5.1 MMOL/L (3.5-5.1); Sodium 140 MMOL/L (136-145); Total Protein 5.1 G/DL (6.4-8.3)
[2018-06-29] MEDS: SUCRALFATE 1 GM TABLET PO SCH ×3 (09:39→16:34)
[2018-06-29] MEDS: CARBIDOPA/LEVODOPA CR 50-200 MG TABLET PO SCH ×2 (09:39→15:30)
[2018-06-29] MEDS: DILTIAZEM CD 240 MG CAPSULE PO SCH (09:39)
[2018-06-29] MEDS: FUROSEMIDE 40 MG TABLET PO SCH ×2 (09:39→15:30)
[2018-06-29] MEDS: METOPROLOL TARTRATE 50 MG TABLET PO SCH (09:40)
[2018-06-29] MEDS: FAMOTIDINE 20 MG TABLET PO SCH (09:40)
[2018-06-29] MEDS: TAMSULOSIN 0.4 MG CAPSULE PO SCH (09:40)
[2018-06-29] MEDS: FOLIC ACID 1 MG TABLET PO SCH (09:40)
[2018-06-29] MEDS: ASPIRIN EC 81 MG TABLET PO SCH (09:40)
[2018-06-29] MEDS: MAGNESIUM OXIDE 400 MG TABLET PO SCH (09:40)
[2018-06-29] MEDS: POTASSIUM CHLORIDE 20 MEQ TABLET PO SCH (09:40)
[2018-06-29] MEDS: busPIRone 5 MG TABLET PO SCH (09:41)
[2018-06-29] MEDS: CLOPIDOGREL 75 MG TABLET PO SCH (09:41)
[2018-06-29] MEDS: ALLOPURINOL 100 MG TABLET PO SCH (09:41)
[2018-06-29] MEDS: PANTOPRAZOLE 40 MG VIAL IV SCH (09:47)
[2018-06-29] MEDS: URSODIOL 300 MG CAPSULE PO SCH (11:02)
[2018-06-29] MEDS: DESITIN 4OZ/NYSTATIN 15 GRAM MIXTURE PASTE TOP SCH (11:02)
[2018-06-29] MEDS: LACTATED RINGERS 1,000 ML IV SCH (16:30)
[2018-06-29] MEDS: ALPRAZolam 0.25 MG TABLET PO PRN (16:57)
[2018-06-29 18:38] LABS: Apearance,Urine CLEAR (Clear); Bilirubin,Urine Negative (Negative); Blood, Urine Negative (Negative); Glucose,Urine (UA) Negative (Negative); Ketones,Urine Negative (Negative); Mucus,Urine Occasional /LPF (Occasional); Nitrite,Urine Negative (Negative); Protein,Urine Negative; RBC,Urine <1 /HPF (0-4); Squamous Epithelial Cell,Urine Occasional /HPF (0-10); Urine Color Yellow (Yellow); Urine Urobilinogen < 2.0 EU/DL (0.2-1.0); WBC,Urine 9 /HPF (0-6)
[2018-06-29] MEDS: ZIPRASIDONE 20 MG/1 ML VIAL IM PRN (19:22)
[2018-06-30] MEDS: URSODIOL 300 MG CAPSULE PO SCH (00:33)
[2018-06-30] MEDS: SUCRALFATE 1 GM TABLET PO SCH ×5 (00:34→22:32)
[2018-06-30] MEDS: FAMOTIDINE 20 MG TABLET PO SCH ×3 (00:35→22:30)
[2018-06-30] MEDS: POTASSIUM CHLORIDE 20 MEQ TABLET PO SCH ×3 (00:35→22:33)
[2018-06-30] MEDS: PANTOPRAZOLE 40 MG VIAL IV SCH ×3 (00:36→22:23)
[2018-06-30] MEDS: MIRTAZAPINE 15 MG TABLET PO SCH ×2 (00:40→22:34)
[2018-06-30] MEDS: cefTRIAXone 1,000 MG in SYRINGE 1 EACH IV SCH ×2 (00:41→22:27)
[2018-06-30] MEDS: CARBIDOPA/LEVODOPA CR 50-200 MG TABLET PO SCH ×4 (00:46→22:35)
[2018-06-30] MEDS: ALLOPURINOL 100 MG TABLET PO SCH ×3 (00:46→22:36)
[2018-06-30] MEDS: SIMVASTATIN 10 MG TABLET PO SCH ×2 (00:46→22:36)
[2018-06-30] MEDS: DESITIN 4OZ/NYSTATIN 15 GRAM MIXTURE PASTE TOP SCH ×3 (00:46→22:38)
[2018-06-30] MEDS: METOPROLOL TARTRATE 50 MG TABLET PO SCH ×3 (00:47→22:34)
[2018-06-30] MEDS: DILTIAZEM CD 240 MG CAPSULE PO SCH ×3 (00:48→22:33)
[2018-06-30] MEDS: busPIRone 5 MG TABLET PO SCH ×3 (01:07→22:31)
[2018-06-30] MEDS: ZIPRASIDONE 20 MG/1 ML VIAL IM PRN ×3 (01:22→18:36)
[2018-06-30] MEDS: ALPRAZolam 0.25 MG TABLET PO PRN ×2 (02:55→10:09)
[2018-06-30 07:32] LABS: Hematocrit 28.4 VOL% (42.0-52.0); Hemoglobin 8.7 GM/DL (14.0-18.0)
[2018-06-30 09:01] LABS: Calcium 8.9 MG/DL (8.5-10.1); Osmolality,Calculated 276.8 MOS/KG (273-304); Potassium 4.3 MMOL/L (3.5-5.1)
[2018-06-30] MEDS: CLOPIDOGREL 75 MG TABLET PO SCH (10:05)
[2018-06-30] MEDS: ASPIRIN EC 81 MG TABLET PO SCH (10:06)
[2018-06-30] MEDS: FOLIC ACID 1 MG TABLET PO SCH (10:06)
[2018-06-30] MEDS: MAGNESIUM OXIDE 400 MG TABLET PO SCH (10:08)
[2018-06-30] MEDS: TAMSULOSIN 0.4 MG CAPSULE PO SCH (10:08)
[2018-06-30] MEDS: FUROSEMIDE 40 MG TABLET PO SCH ×2 (10:09→15:43)
[2018-06-30] MEDS ORDERED: TUBERCULIN SKIN TEST 0.1 ML SYRINGE INTRADERM ONE (11:31)
[2018-06-30] MEDS: CYANOCOBALAMIN 1000 MCG/1 ML VIAL IM SCH (13:28)
[2018-06-30] MEDS: ACETAMINOPHEN 325 MG TABLET PO PRN (14:51)
[2018-06-30] MEDS: LACTATED RINGERS 1,000 ML IV SCH (14:55)
[2018-06-30] MEDS: ONDANSETRON 4 MG/2 ML VIAL IV PRN (16:56)
[2018-06-30 20:46] LABS: % Iron Saturation 25.7 % (18-50)
[2018-07-01] MEDS: PANTOPRAZOLE 40 MG VIAL IV SCH (09:09)
[2018-07-01] MEDS: POTASSIUM CHLORIDE 20 MEQ TABLET PO SCH (09:10)
[2018-07-01] MEDS: FOLIC ACID 1 MG TABLET PO SCH (09:10)
[2018-07-01] MEDS: ASPIRIN EC 81 MG TABLET PO SCH (09:10)
[2018-07-01] MEDS: SUCRALFATE 1 GM TABLET PO SCH ×2 (09:10→11:56)
[2018-07-01] MEDS: busPIRone 5 MG TABLET PO SCH (09:10)
[2018-07-01] MEDS: FUROSEMIDE 40 MG TABLET PO SCH (09:11)
[2018-07-01] MEDS: CARBIDOPA/LEVODOPA CR 50-200 MG TABLET PO SCH (09:11)
[2018-07-01] MEDS: MAGNESIUM OXIDE 400 MG TABLET PO SCH (09:11)
[2018-07-01] MEDS: FAMOTIDINE 20 MG TABLET PO SCH (09:11)
[2018-07-01] MEDS: TAMSULOSIN 0.4 MG CAPSULE PO SCH (09:11)
[2018-07-01] MEDS: CLOPIDOGREL 75 MG TABLET PO SCH (09:11)
[2018-07-01] MEDS: ALLOPURINOL 100 MG TABLET PO SCH (09:11)
[2018-07-01] MEDS: METOPROLOL TARTRATE 50 MG TABLET PO SCH (09:11)
[2018-07-01] MEDS: DILTIAZEM CD 240 MG CAPSULE PO SCH (09:11)
[2018-07-01] MEDS: DESITIN 4OZ/NYSTATIN 15 GRAM MIXTURE PASTE TOP SCH (10:24)
[2018-07-01 12:17] VITALS: BP 102/51
[2018-07-01] MEDS ORDERED: MAGNESIUM HYDROXIDE SUSP 30 ML UDCUP PO ONE (12:34)
[2018-07-01] MEDS: LACTATED RINGERS 1,000 ML IV SCH (14:45)
== END 2018-07-01 15:30 | disposition swing bed (61) | DRG 418 ==
LOC: EDUNIT# → EDBD → N.EDINP 11:52 → N.ED 11:52 → N.CC 19:10 → SUATTDRO 06-21 12:48 → N.TELEN 06-21 18:14
PROVIDERS: ADMIT Internal Medicine; ATTEND Internal Medicine
PROC: LAPCHOL (2018-06-28 12:57)